=== PATIENT | female | born 1950 | race Caucasian/White ===

== ENCOUNTER 2016-05-19 18:33 | Emergency (ER) | payer MEDICARE, BC ==
[2016-05-19 19:22] VITALS: BP 172/92
--- NOTE | 2016-05-20 17:25 | UC ---
Chucky Velázquez Erika, scribed for Angelina Simon MD on 05/19/16 at 1937 . Lower Extremity/Ankle HPI - HPI Summary HPI Summary: Patient is a 65-year-old female presenting to [facility] with her with a CC of right pedal edema. Patient reports that she has had edema intermittently in her LLE since January 2016. She had an ultrasound of the LLE in the ED in early March 2016, and was diagnosed with cellulitis and put on PO Abx. Pt's RLE has been normal until today, when she developed warmth and redness of the right distal anterior tibia. Pt denies fever and pain to the posterior calf. She does note slight pain to the ankle. She denies chest pain and SOB. Patient has been taking Xarelto 20 mg daily since November 2015 for her Hx A Fib, and is followed by Dr. Garcia (cardiology). She states she has not missed any doses of her Xarelto. Pt has a Hx breast cancer for the past 6 years, and is followed by Dr. Castellanos (oncology) and is currently receiving chemotherapy. Patient reports she has close follow up on 05/21/2016. Pt also takes furosemide. Denies Hx DVT, diabetes. - History of Current Complaint Chief Complaint: UCLowerExtremity Stated Complaint: LEG SWELLING Time Seen by Provider: 05/19/16 19:27 Hx Obtained From: Patient, Family/Center Administrator - Onset/Duration: Gradual Onset, Lasting Hours, Still Present Severity Currently: Moderate Pain Intensity: 2 Pain Scale Used: 0-10 Numeric Aggravating Factor(s): Standing Alleviating Factor(s): Nothing Able to Bear Weight: Yes Related History: Other - has breast cancer on chemo, and is on Xarelto for afib - Allergies/Home Medications Allergies/Adverse Reactions: Allergies Allergy/AdvReac Type Severity Reaction Status Date / Time Hydrochlorothiazide Allergy Intermediate Rash And Verified 05/19/16 19:22 Itching Lisinopril Allergy Intermediate Coughing Verified 05/19/16 19:22 Penicillins Allergy Intermediate Rash And Verified 05/19/16 19:22 Itching Adhesive Tape [Paper Tape] Allergy Mild Rash Verified 05/19/16 19:22 Home Medications: Home Medications Metoprolol Succinate Er* 25 mg PO BID 05/19/16 [History Confirmed 05/19/16] Mushroom Extract* 05/19/16 [History] Zoledronic Acid* [Zometa*] 05/19/16 [History] PMH/Surg Hx/FS Hx/Imm Hx Endocrine History Of: Denies: Diabetes Cardiovascular History Of: Reports: Hypertension, Atrial Fibrillation GI/ History Of: Denies: Renal Disease Cancer History Of: Reports: Breast Cancer - Surgical History Surgical History: Yes Surgery Procedure, Year, and Place: Rt BREAST - MASTECTOMY THEN A SILICONE IMPLANTS. HYSTERECTOMY. CHOLECYSTECTOMY. BLADDER - TRANSURTHRAL RESECTION - Xs 2. CARDIAC CATH - W/O STENTS - Family History Known Family History: Positive: Hypertension, Other - Cancer Negative: Diabetes, Blood Disorder - no DVT or PE's - Social History Lives: With Family Alcohol Use: Weekly Alcohol Amount: 1-2 GLASSES WINE/WEEK Substance Use Type: None Smoking Status (MU): Never Smoked Tobacco Have You Smoked in the Last Year: No Review of Systems Constitutional: Negative Skin: Other - redness and warmth to the RLE Eyes: Negative ENT: Negative Respiratory: Negative Cardiovascular: Negative Gastrointestinal: Negative Genitourinary: Negative Motor: Negative Neurovascular: Negative Musculoskeletal: Edema - bilateral lower extremity Neurological: Negative Psychological: Negative All Other Systems Reviewed And Are Negative: Yes Physical Exam Triage Information Reviewed: Yes Appearance: Well-Appearing, No Pain Distress, Well-Nourished, Other: - Pt is in sinus rhythm by palpation and auscultation Vital Signs: Initial Vital Signs Temp 98.2 F 05/19/16 19:15 Pulse 93 05/19/16 19:15 Resp 16 05/19/16 19:15 BP 172/92 05/19/16 19:15 Pulse Ox 98 05/19/16 19:15 Vital Signs Reviewed: Yes Eyes: Positive: Conjunctiva Clear ENT: Positive: Normal ENT inspection Neck: Positive: Supple Respiratory: Positive: Lungs clear, Normal breath sounds, No respiratory distress Cardiovascular: Positive: RRR, No Murmur, Pulses Normal, Brisk Capillary Refill Musculoskeletal: Positive: Strength Intact, ROM Intact, Other: - No calf tenderness, equivocal Cherise's sign, edema bilat lower extrem left worse than right, redness distal ant tibia (see below) Neurological: Positive: Alert, Muscle Tone Normal Psychological Exam: Normal Skin Exam: Other - 7cm x 14 cm area of erythema and warmth at the left distal anterior tibia. No areas open or weeping Re-Evaluation - Re-Evaluation First Eval Re-Evaluation Time: 19:57 Comment: Discussed Dr. Comer's recommendations and plan for follow up tomorrow Lower Extremity Course/Dx - Differential Dx/Diagnosis Differential Diagnosis/HQI/PQRI: Cellulitis, DVT, Strain, Other - CHF Provider Diagnoses: Cellulitis. bilateral pedal edema. breast cancer undergoing chemotherapy. afib on xarelto - Physician Notifications Discussed Patient Care With: Dr. Comer (oncology) at 19:52 - will have patient come in for an outpatient US tomorrow. Recommends treatment for cellulitis starting today. Discharge - Discharge Plan Condition: Stable Disposition: HOME Prescriptions: Cephalexin CAP* [Keflex 500 CAP*] 500 mg PO QID #40 cap Patient Education Materials: Cellulitis (ED) Referrals: Kenrick Salomon MD [Primary Care Provider] - Pete Comer MD [Medical Doctor] - 1 Day Additional Instructions: Dr. Simon spoke to Dr. Comer who was data communications software consultant [facility]. He wants to get an ultrasound on your right leg tomorrow. Call the office as soon as they open to have them arrange this for you. Go to the Emergency Room if you develop chest pain or shortness of breath or any new or worsening symptoms before you see Dr. Comer's office. The documentation as recorded by the Chucky atwood Erika accurately reflects the service I personally performed and the decisions made by me, Angelina Simon MD.
== END 2016-05-19 20:10 | disposition home or self-care (01) ==
LOC: UCEAST 18:33
DX: L03.116 Cellulitis of left lower limb (principal); L03.115 Cellulitis of right lower limb; R60.9 Edema, unspecified; C50.911 Malignant neoplasm of unspecified site of right female breast
CPT/HCPCS: 99212; G0463

== ENCOUNTER 2016-11-15 12:57 | Emergency (ER) | payer MEDICARE, BC ==
[2016-11-15] MEDS ORDERED: NS 0.9% 1000 ML* 1,000 ML IV ONE ×2 (13:53→15:53)
[2016-11-15] MEDS ORDERED: Acetaminophen TAB* 325 MG PO ONE (13:56)
[2016-11-15 14:21] LABS: Add Diff/Slide Review? Slide Review Added; Comments Flag Yes; Hematocrit 33 % (35-47); Hemoglobin 11.6 g/dl (12.0-16.0); Mean Corpuscular HGB Conc 35 g/dl (31-36); Mean Corpuscular Hemoglobin 39 pg (27-31); Mean Corpuscular Volume 110 fL (80-97); Mean Platelet Volume 9 um3 (7.4-10.4); Red Blood Count 2.97 10^6/ul (4.0-5.4); Red Cell Distribution Width 14 % (10.5-15); White Blood Count 2.9 10^3/ul (3.5-10.8)
[2016-11-15 14:24] LABS: Urine Bacteria Absent (Absent); Urine Bilirubin Negative (Negative); Urine Glucose Negative (Negative); Urine Nitrite Negative (Negative)
[2016-11-15 14:31] LABS: Albumin 3.4 g/dL (3.2-5.2); BUN/Creatinine Ratio 13.8 (8-20); C Reactive Protein 223.92 mg/L (< 5.00); Calcium 8.4 mg/dL (8.6-10.3); EGFR African American 64.2 (>60); EGFR Non-African American 49.9 (>60); Potassium 3.3 mmol/L (3.5-5.0); Total Protein 6.4 g/dL (6.4-8.9)
[2016-11-15 14:33] LABS: Troponin I 0.02 ng/mL (<0.04)
[2016-11-15 14:46] LABS: Macrocytosis 2+
--- NOTE | 2016-11-15 14:59 | RAD ---
Indication: Fever. Single frontal view of the chest performed at 1414 hours was reviewed. No prior study is available for comparison. Left breast prosthesis is noted. No mediastinal shift is noted. Central line is in place. IMPRESSION: INCREASED DENSITY IN THE LEFT BASE IS FELT TO BE SECONDARY TO THE LEFT BREAST PROSTHESIS
[2016-11-15] MEDS ORDERED: Levofloxacin 750 MG IVPREMIX(* 750 MG/150 ML BAG IVPB ONE (16:11)
[2016-11-15] MEDS ORDERED: Potassium Chlor TAB* 20 MEQ TAB.ER PO ONE (17:45)
--- NOTE | 2016-11-15 18:52 | ED ---
Lara Veláqzuez Thomas, scribed for Jd Royal MD on 11/15/16 at 1347 . HPI Febrile Illness - HPI Summary HPI Summary: The pt is a 66 y/o F presenting to the ED c/o a febrile illness that began two days ago. Pt c/o SOB (minor), nausea, diarrhea (soft and without blood), DE PAZ, earache (R>L), vomiting, chills, myalgia (mild), arthralgia (mild), and abd pain (cramping). Pt denies cough and CP. PMHx: A-Fib, anticoagulation therapy, HTN, L breast CA (metastasized to L lung, bladder, endometrial). PSHx: L breast mastectomy, hysterectomy, cholecystectomy, and cardiac catheterization. SHx: weekly alcohol use, no smoking, no illicit drugs. She denies recent sick contacts or antibiotics use. The patient is on oral chemotherapy and Dr. Castellanos is her oncologist. - History of Current Complaint Chief Complaint: EDNauseaVomitDiarrh Time Seen by Provider: 11/15/16 13:39 Hx Obtained From: Patient, Family/Roll Over Loader - in room Onset/Duration: Started Days Ago - 2, Still Present Timing: Constant Current Severity: Mild Aggravating Factors: Nothing Alleviating Factors: Nothing Associated Signs and Symptoms: Chills, Diarrhea - explosive and without blood, Headache, Joint Pain - mild, Myalgia - mild, Nausea, SOB, Vomiting, Other: - POS : abd pain (cramping); NEG: cough, CP - Allergy/Home Medications Allergies/Adverse Reactions: Allergies Allergy/AdvReac Type Severity Reaction Status Date / Time Hydrochlorothiazide Allergy Intermediate Rash And Verified 11/15/16 14:18 Itching Lisinopril Allergy Intermediate Coughing Verified 11/15/16 14:18 Penicillins Allergy Intermediate Rash And Verified 11/15/16 14:18 Itching Adhesive Tape [Paper Tape] Allergy Mild Rash Verified 11/15/16 14:18 Home Medications: Home Medications Ribociclib Succinate-Letrozole [Kisqali Femara 200 Dose 200 & 2.5 mg] 1 kellie PO DAILY 11/15/16 [History Confirmed 11/15/16] PMH/Surg Hx/FS Hx/Imm Hx Previously Healthy: No Endocrine/Hematology History: Denies: Hx Diabetes Cardiovascular History: Reports: Hx Aneurysm - Ascending thoraxic aorta 5 cm, Hx Hypertension Denies: Hx Angina, Hx Pacemaker/ICD Respiratory History: Reports: Other Respiratory Problems/Disorders - Hx Thoracentesis x 2 History: Denies: Hx Renal Disease Musculoskeletal History: Reports: Other Musculoskeletal History - osteroarthritis right shoulder Sensory History: Denies: Hx Hearing Aid Psychiatric History: Denies: Hx Panic Disorder - Cancer History Cancer Type, Location and Year: LEFT Breast CA metastasized to L lung, bladder CA, endometrial CA Hx Chemotherapy: Yes Hx Radiation Therapy: Yes - Surgical History Surgery Procedure, Year, and Place: LEFT BREAST - MASTECTOMY THEN A SILICONE IMPLANTS. HYSTERECTOMY. CHOLECYSTECTOMY. BLADDER - TRANSURTHRAL RESECTION - Xs 2. CARDIAC CATH - W/O STENTS Infectious Disease History: Denies: Traveled Outside the [place] in Last 30 Days - Family History Known Family History: Positive: Hypertension, Other - Cancer Negative: Diabetes - Social History Alcohol Use: Weekly Alcohol Amount: 1-2 GLASSES WINE/WEEK Substance Use Type: Reports: None Smoking Status (MU): Never Smoked Tobacco Have You Smoked in the Last Year: No Review of Systems Positive: Fever - onset 2 days ago, Chills Positive: Ear Ache - R>L Negative: Chest Pain Positive: Shortness Of Breath - minor. Negative: Cough Positive: Abdominal Pain - cramping, Vomiting - explosive and without blood, Diarrhea, Nausea Positive: Arthralgia - mild, Myalgia - mild Positive: Headache All Other Systems Reviewed And Are Negative: Yes Physical Exam - Summary Physical Exam Summary: VITAL SIGNS: Reviewed. GENERAL: ~Patient is a well-developed and nourished female who is lying comfortable in the stretcher. ~Patient is not in any acute respiratory distress. HEAD AND FACE: She has alopecia. No signs of trauma. ~No ecchymosis, hematomas or skull depressions. No sinus tenderness. EYES: PERRLA, EOMI x 2, No injected conjunctiva, no nystagmus. EARS: Hearing grossly intact. Ear canals and tympanic membranes are within normal limits. MOUTH: She has dry oral mucosa. Oropharynx within normal limits. NECK: Supple, trachea is midline, no adenopathy, no JVD, no carotid bruit, no c- spine tenderness, neck with full ROM. CHEST: Symmetric, no tenderness at palpation LUNGS: Clear to auscultation bilaterally. No wheezing or crackles. CVS: Regular rate and rhythm, S1 and S2 present, no murmurs or gallops appreciated. ABDOMEN: There is a Left mastectomy. Soft, non-tender. No signs of distention. No rebound no guarding, and no masses palpated. Bowel sounds are normal. EXTREMITIES: FROM in all major joints, no edema, no cyanosis or clubbing. NEURO: Alert and oriented x 3. No acute neurological deficits. Speech is normal and follows commands. SKIN: Dry and warm Triage Information Reviewed: Yes Vital Signs On Initial Exam: Initial Vitals Temp Pulse Resp BP Pulse Ox 102.4 F 89 20 155/70 99 11/15/16 12:59 11/15/16 12:59 11/15/16 12:59 11/15/16 12:59 11/15/16 12:59 Vital Signs Reviewed: Yes Diagnostics - Vital Signs Vital Signs Temp Pulse Resp BP Pulse Ox 11/15/16 12:59 102.4 F 89 20 155/70 99 - Laboratory Lab Results: Lab Results 11/15/16 11/15/16 11/15/16 Range/Units 13:35 14:05 14:05 WBC 2.9 L (3.5-10.8) 10^3/ul RBC 2.97 L (4.0-5.4) 10^6/ul Hgb 11.6 L (12.0-16.0) g/dl Hct 33 L (35-47) % MCV 110 H (80-97) fL MCH 39 H (27-31) pg MCHC 35 (31-36) g/dl RDW 14 (10.5-15) % Plt Count 95 L (150-450) 10^3/ul MPV 9 (7.4-10.4) um3 Neut % (Auto) 82.1 (38-83) % Lymph % (Auto) 6.8 L (25-47) % [place] % (Auto) 10.7 H (1-9) % Eos % (Auto) 0 (0-6) % Baso % (Auto) 0.4 (0-2) % Absolute Neuts (auto) 2.4 (1.5-7.7) 10^3/ul Absolute Lymphs (auto) 0.2 L (1.0-4.8) 10^3/ul Absolute Monos (auto) 0.3 (0-0.8) 10^3/ul Absolute Eos (auto) 0 (0-0.6) 10^3/ul Absolute Basos (auto) 0 (0-0.2) 10^3/ul Absolute Nucleated RBC 0 10^3/ul Nucleated RBC % 0.1 Normal RBC Morphology Not Reportable Macrocytosis 2+ INR (Anticoag Therapy) 2.32 H (0.89-1.11) APTT 55.9 H (26.0-36.3) seconds Sodium (133-145) mmol/L Potassium (3.5-5.0) mmol/L Chloride (101-111) mmol/L Carbon Dioxide (22-32) mmol/L Anion Gap (2-11) mmol/L BUN (6-24) mg/dL Creatinine (0.51-0.95) mg/dL Est GFR ( Amer) (>60) Est GFR (Non-Af Amer) (>60) BUN/Creatinine Ratio (8-20) Glucose (70-100) mg/dL Lactic Acid (0.5-2.0) mmol/L Calcium (8.6-10.3) mg/dL Total Bilirubin (0.2-1.0) mg/dL AST (13-39) U/L ALT (7-52) U/L Alkaline Phosphatase (34-104) U/L Total Creatine Kinase (10-223) U/L Troponin I (<0.04) ng/mL C-Reactive Protein (< 5.00) mg/L B-Natriuretic Peptide ( - 100) pg/mL Total Protein (6.4-8.9) g/dL Albumin (3.2-5.2) g/dL Globulin (2-4) g/dL Albumin/Globulin Ratio (1-3) Procalcitonin (<0.6) ng/mL Urine Color [place] Urine Appearance Cloudy Urine pH 5.0 (5-9) Ur Specific [place] 1.021 (1.010-1.030) Urine Protein 2+(100 mg/dl) H (Negative) Urine Ketones Trace H (Negative) Urine Blood 1+ H (Negative) Urine Nitrate Negative (Negative) Urine Bilirubin Negative (Negative) Urine Urobilinogen Negative (Negative) Ur Leukocyte Esterase Trace H (Negative) Urine WBC (Auto) 1+(6-10/hpf) H (Absent) Urine RBC (Auto) Trace(0-2/hpf) (Absent) Urine Bacteria Absent (Absent) Urine Glucose Negative (Negative) Urine Ascorbic Acid * H (Negative) 11/15/16 11/15/16 11/15/16 Range/Units 14:05 14:05 14:05 WBC (3.5-10.8) 10^3/ul RBC (4.0-5.4) 10^6/ul Hgb (12.0-16.0) g/dl Hct (35-47) % MCV (80-97) fL MCH (27-31) pg MCHC (31-36) g/dl RDW (10.5-15) % Plt Count (150-450) 10^3/ul MPV (7.4-10.4) um3 Neut % (Auto) (38-83) % Lymph % (Auto) (25-47) % [place] % (Auto) (1-9) % Eos % (Auto) (0-6) % Baso % (Auto) (0-2) % Absolute Neuts (auto) (1.5-7.7) 10^3/ul Absolute Lymphs (auto) (1.0-4.8) 10^3/ul Absolute Monos (auto) (0-0.8) 10^3/ul Absolute Eos (auto) (0-0.6) 10^3/ul Absolute Basos (auto) (0-0.2) 10^3/ul Absolute Nucleated RBC 10^3/ul Nucleated RBC % Normal RBC Morphology Macrocytosis INR (Anticoag Therapy) (0.89-1.11) APTT (26.0-36.3) seconds Sodium 132 L (133-145) mmol/L Potassium 3.3 L (3.5-5.0) mmol/L Chloride 98 L (101-111) mmol/L Carbon Dioxide 25 (22-32) mmol/L Anion Gap 9 (2-11) mmol/L BUN 15 (6-24) mg/dL Creatinine 1.09 H (0.51-0.95) mg/dL Est GFR ( Amer) 64.2 (>60) Est GFR (Non-Af Amer) 49.9 (>60) BUN/Creatinine Ratio 13.8 (8-20) Glucose 126 H (70-100) mg/dL Lactic Acid 0.7 (0.5-2.0) mmol/L Calcium 8.4 L (8.6-10.3) mg/dL Total Bilirubin 1.00 (0.2-1.0) mg/dL AST 23 (13-39) U/L ALT 15 (7-52) U/L Alkaline Phosphatase 62 (34-104) U/L Total Creatine Kinase 70 (10-223) U/L Troponin I 0.02 (<0.04) ng/mL C-Reactive Protein 223.92 H (< 5.00) mg/L B-Natriuretic Peptide 296 H ( - 100) pg/mL Total Protein 6.4 (6.4-8.9) g/dL Albumin 3.4 (3.2-5.2) g/dL Globulin 3.0 (2-4) g/dL Albumin/Globulin Ratio 1.1 (1-3) Procalcitonin (<0.6) ng/mL Urine Color Urine Appearance Urine pH (5-9) Ur Specific [place] (1.010-1.030) Urine Protein (Negative) Urine Ketones (Negative) Urine Blood (Negative) Urine Nitrate (Negative) Urine Bilirubin (Negative) Urine Urobilinogen (Negative) Ur Leukocyte Esterase (Negative) Urine WBC (Auto) (Absent) Urine RBC (Auto) (Absent) Urine Bacteria (Absent) Urine Glucose (Negative) Urine Ascorbic Acid (Negative) 11/15/16 Range/Units 14:05 WBC (3.5-10.8) 10^3/ul RBC (4.0-5.4) 10^6/ul Hgb (12.0-16.0) g/dl Hct (35-47) % MCV (80-97) fL MCH (27-31) pg MCHC (31-36) g/dl RDW (10.5-15) % Plt Count (150-450) 10^3/ul MPV (7.4-10.4) um3 Neut % (Auto) (38-83) % Lymph % (Auto) (25-47) % [place] % (Auto) (1-9) % Eos % (Auto) (0-6) % Baso % (Auto) (0-2) % Absolute Neuts (auto) (1.5-7.7) 10^3/ul Absolute Lymphs (auto) (1.0-4.8) 10^3/ul Absolute Monos (auto) (0-0.8) 10^3/ul Absolute Eos (auto) (0-0.6) 10^3/ul Absolute Basos (auto) (0-0.2) 10^3/ul Absolute Nucleated RBC 10^3/ul Nucleated RBC % Normal RBC Morphology Macrocytosis INR (Anticoag Therapy) (0.89-1.11) APTT (26.0-36.3) seconds Sodium (133-145) mmol/L Potassium (3.5-5.0) mmol/L Chloride (101-111) mmol/L Carbon Dioxide (22-32) mmol/L Anion Gap (2-11) mmol/L BUN (6-24) mg/dL Creatinine (0.51-0.95) mg/dL Est GFR ( Amer) (>60) Est GFR (Non-Af Amer) (>60) BUN/Creatinine Ratio (8-20) Glucose (70-100) mg/dL Lactic Acid (0.5-2.0) mmol/L Calcium (8.6-10.3) mg/dL Total Bilirubin (0.2-1.0) mg/dL AST (13-39) U/L ALT (7-52) U/L Alkaline Phosphatase (34-104) U/L Total Creatine Kinase (10-223) U/L Troponin I (<0.04) ng/mL C-Reactive Protein (< 5.00) mg/L B-Natriuretic Peptide ( - 100) pg/mL Total Protein (6.4-8.9) g/dL Albumin (3.2-5.2) g/dL Globulin (2-4) g/dL Albumin/Globulin Ratio (1-3) Procalcitonin 0.2 (<0.6) ng/mL Urine Color Urine Appearance Urine pH (5-9) Ur Specific [place] (1.010-1.030) Urine Protein (Negative) Urine Ketones (Negative) Urine Blood (Negative) Urine Nitrate (Negative) Urine Bilirubin (Negative) Urine Urobilinogen (Negative) Ur Leukocyte Esterase (Negative) Urine WBC (Auto) (Absent) Urine RBC (Auto) (Absent) Urine Bacteria (Absent) Urine Glucose (Negative) Urine Ascorbic Acid (Negative) Result Diagrams: 11/15/16 14:05 11/15/16 14:05 Lab Statement: Any lab studies that have been ordered have been reviewed, and results considered in the medical decision making process. - Radiology CXR Xray Interpretation: Positive (See Comments) - INCREASED DENSITY IN THE LEFT BASE IS FELT TO BE SECONDARY TO THE LEFT BREAST PROSTHESIS Radiology Interpretation Completed By: Radiologist - EKG 14:21 Cardiac Rate: NL - 87 BPM EKG Interpretation: SR with no ST elevations Re-Evaluation - Re-Evaluation First Eval Re-Evaluation Time: 16:35 Change: Unchanged Comment: We discussed her test results. Course/Dx - Course Assessment/Plan: The pt is a 66 y/o F presenting to the ED c/o a febrile illness that began two days ago. Pt c/o SOB (minor), nausea, diarrhea (soft and without blood), DE PAZ, earache (R>L), vomiting, chills, myalgia (mild), arthralgia (mild), and abd pain (cramping). Pt denies cough and CP. PMHx: A-Fib, anticoagulation therapy, HTN, L breast CA (metastasized to L lung, bladder, endometrial). PSHx: L breast mastectomy, hysterectomy, cholecystectomy, and cardiac catheterization. SHx: weekly alcohol use, no smoking, no illicit drugs. She denies recent sick contacts or antibiotics use. The patient is on oral chemotherapy and Dr. Castellanos is her oncologist. Test results are within normal limits except WBC 2.9, Hcb 11.6, Hct 33, Sodium 132, and Potassium 3.3. CRP is 223 and BNP is 296. UA is negative for UTI. CXR reveals INCREASED DENSITY IN THE LEFT BASE IS FELT TO BE SECONDARY TO THE LEFT BREAST PROSTHESIS. In the ED course the patient was hemodynamically stale. The patient was given Tylenol for the fever. I discussed the case with Dr. Epstein, who is covering for Dr. Castellanos, and he recommended that the patient be started on Levaquin. Dr. Castellanos knows that the patient is taking Kisqali Femara, which has a small interaction with Levaquin, but he recommends that the patient be put on Levaquin. He thinks that the patient may be having a bacterial infection and Levaquin would be best for this. He also recommended that the patient be discharged with follow up from Dr. Castellanos on Thursday. The Patient is hemodynamically stable. She feels better and has no other complaints. I discussed all the findings and test results with the patient. Patient was instructed to return to the emergency room immediately if any of the symptoms return or worsens. Plan of care was discussed with the patient and understands and agrees. All questions were answered at patient satisfaction. There were no further complaints or concerns. - Febrile Illness Differential Diagnoses: Bacteremia, Cellulitis, Fever of Unknown Origin, Pneumonia - Diagnoses Provider Diagnoses: Fever - Provider Notifications Discussed Care Of Patient With: Marvel Epstein Time Discussed With Above Provider: 16:11 Instructed by Provider To: Other - Dr. Epstein, oncology, who is covering for Dr. Castellanos, recommends prescribing Levaquin and discharging the patient home. Discharge - Discharge Plan Condition: Stable Disposition: HOME Prescriptions: Levofloxacin TAB* [Levaquin TAB*] 500 mg PO DAILY #7 tab Patient Education Materials: Fever in Adults (ED) Referrals: Doris Castellanos MD [Medical Doctor] - 2 Days The documentation as recorded by the Lara atwood Thomas accurately reflects the service I personally performed and the decisions made by me, Jd Royal MD.
[2016-11-15 19:01] VITALS: BP 108/61
== END 2016-11-15 19:02 | disposition home or self-care (01) ==
LOC: ED 12:57
DX: R50.9 Fever, unspecified (principal); R06.02 Shortness of breath; R19.7 Diarrhea, unspecified; R51 Headache; R11.2 Nausea with vomiting, unspecified; R10.9 Unspecified abdominal pain; Z88.0 Allergy status to penicillin; Z88.8 Allergy status to other drugs, medicaments and biological substances; I71.4 Abdominal aortic aneurysm, without rupture; I10 Essential (primary) hypertension; R94.31 Abnormal electrocardiogram [ECG] [EKG]
CPT/HCPCS: 36415; 71010; 80053; 81003; 81015; 82550; 83605; 83880; 84145; 84484; 85025; 85610; 85730; 86140; 87040; 87086; 93005; 96361; 96365; 96366; 99283; A9270-GY; J1642

== ENCOUNTER → 2017-05-27 07:11 | Day surgery (SDC) | payer MEDICARE, BC ==
[~2017-05-27 07:11] MED LIST: Acetaminophen TAB* 325 MG PO PRN; Buffered Lidocaine 0.9% SYRIN* 5 ML/SYR SYRINGE INTRADERM ONE; Cyclopentolate 1% OPTH.SOL* 2 ML BTL ONE; Ketorolac 0.5% OPHTH (NF) 0.5 % 5 ML BTL ONE; Lidocaine 1% MPF* 2 ML VIAL ONE; Lidocaine 2% EPI 1:200000 MPF* 20 ML VIAL ONE; Midazolam* 1 MG/ML 2 ML VIAL (2 MG) ONE; Neomycin/Polymy/Dex OPTH.SUSP* MAXITROL 0.1% 5 ML ONE; Phenylephrine 2.5% OPTH.SOL* 2 ML BTL ONE; Povidone Iodine 5% OPTH* 30 ML BTL ONE; Proparacaine 0.5% OPHTH.SOL* 15 ML BTL ONE; acetaZOLAMIDE TAB* 250 MG ONE
[2017-05-27 10:05] VITALS: BP 133/70
--- NOTE | 2017-05-28 02:11 | OP ---
DATE OF OPERATION: 05/27/17 [facility] DATE OF : 46 SURGEON: Jose Fish MD PRE-OP DIAGNOSIS: Cataract, right eye. POST-OP DIAGNOSIS: Cataract, right eye. OPERATIVE PROCEDURE: Extracapsular cataract extraction with intraocular lens implant, right eye. DESCRIPTION OF PROCEDURE: The patient was brought to the operating room after being given 1/2% Alcaine with epinephrine drops in the preoperative area. The eye was prepped and draped in the usual sterile fashion. Sterile drape and eyelid speculum were placed. Again, topical 1/2% Alcaine with epinephrine was given. A paracentesis incision was made at the 9 o'clock position with the No.75 blade. Clear cornea incision 2.2 x 2.2-mm was created at the 12 o'clock position starting at the anterior limbus using the 2.2-mm keratome. The anterior chamber was irrigated with 0.4 mL of 1% non-preservative intracameral lidocaine and filled with DisCoVisc. A capsulorrhexis was completed using the cystotome and the Utrata forceps. Hydrodissection was performed with balanced salt solution. The lens nucleus was removed with the Phacoemulsification handpiece without incident. Cortex was removed with the irrigation-aspiration handpiece. The capsular bag was re-inflated using DisCoVisc and an [id number] 20.5 oriented to the 163-degree meridian. Horizontal reference stephenson were made with the patient in the seated position in the preoperative area. The irrigation-aspiration handpiece was used to remove all residual DisCoVisc. The eye was refilled with balanced salt solution and the wound checked and found to be watertight. Topical Maxitrol drops were given. [id number]/[facility] #: [id number] MTDD
== END | disposition home or self-care (01) ==
LOC: OREAST 07:11
PROVIDERS: ATTEND Specialist
DX: H25.811 Combined forms of age-related cataract, right eye (principal); H35.3131 Nonexudative age-related macular degeneration, bilateral, early dry stage; H49.11 Fourth [trochlear] nerve palsy, right eye; Z85.3 Personal history of malignant neoplasm of breast; Z68.30 Body mass index [BMI] 30.0-30.9, adult; I10 Essential (primary) hypertension; C55 Malignant neoplasm of uterus, part unspecified; C67.9 Malignant neoplasm of bladder, unspecified; C78.7 Secondary malignant neoplasm of liver and intrahepatic bile duct; I48.91 Unspecified atrial fibrillation; Z79.01 Long term (current) use of anticoagulants
CPT/HCPCS: A9270-GY; J2250; V2787

== ENCOUNTER 2017-06-03 06:52 | Day surgery (SDC) | payer MEDICARE, BC ==
[~2017-06-03 06:52] MED LIST changes: -Cyclopentolate 1% OPTH.SOL* 2 ML BTL ONE; -Ketorolac 0.5% OPHTH (NF) 0.5 % 5 ML BTL ONE; -Lidocaine 1% MPF* 2 ML VIAL ONE; -Lidocaine 2% EPI 1:200000 MPF* 20 ML VIAL ONE; -Midazolam* 1 MG/ML 2 ML VIAL (2 MG) ONE; -Neomycin/Polymy/Dex OPTH.SUSP* MAXITROL 0.1% 5 ML ONE; -Phenylephrine 2.5% OPTH.SOL* 2 ML BTL ONE; -Povidone Iodine 5% OPTH* 30 ML BTL ONE; -Proparacaine 0.5% OPHTH.SOL* 15 ML BTL ONE; -acetaZOLAMIDE TAB* 250 MG ONE
[2017-06-03] MEDS ORDERED: acetaZOLAMIDE TAB* 250 MG ONE (07:44)
[2017-06-03] MEDS ORDERED: Cyclopentolate 1% OPTH.SOL* 2 ML BTL ONE (07:44)
[2017-06-03] MEDS ORDERED: Proparacaine 0.5% OPHTH.SOL* 15 ML BTL ONE (07:44)
[2017-06-03] MEDS ORDERED: Ketorolac 0.5% OPHTH (NF) 0.5 % 5 ML BTL ONE (07:44)
[2017-06-03] MEDS ORDERED: Phenylephrine 2.5% OPTH.SOL* 2 ML BTL ONE (07:44)
[2017-06-03] MEDS ORDERED: Lidocaine 1% MPF* 2 ML VIAL ONE (07:44)
[2017-06-03] MEDS ORDERED: Lidocaine 2% EPI 1:200000 MPF* 20 ML VIAL ONE (07:44)
[2017-06-03] MEDS ORDERED: Povidone Iodine 5% OPTH* 30 ML BTL ONE (07:44)
[2017-06-03] MEDS ORDERED: Neomycin/Polymy/Dex OPTH.SUSP* MAXITROL 0.1% 5 ML ONE (07:44)
[2017-06-03] MEDS ORDERED: Midazolam* 1 MG/ML 2 ML VIAL (2 MG) ONE ×2 (08:18→08:28)
[2017-06-03 09:11] VITALS: BP 128/67
--- NOTE | 2017-06-03 10:32 | OP ---
DATE OF OPERATION: 06/03/2017. DATE OF : 1950. SURGEON: Jose Fish M.D. PREOPERATIVE DIAGNOSIS: Cataract left eye. POSTOPERATIVE DIAGNOSIS: Cataract left eye. OPERATIVE PROCEDURE: Extracapsular cataract extraction with intraocular lens implant left eye. PROCEDURE: The patient was brought to the operating room after being given 1/2% Alcaine with epineph rine drops in the preoperative area. The eye was prepped and draped in the usual sterile fashion. S terile drape and eyelid speculum were placed. Again, topical 1/2% Alcaine with epinephrine was given . A paracentesis incision was made at the 3 o'clock position with the No.75 blade. Clear cornea inc ision 2.2 x 2.2-mm was created at the 6 o'clock position starting at the anterior limbus using the 2. 2-mm keratome. The anterior chamber was irrigated with 0.4 mL of 1% non-preservative intracameral li docaine and filled with DisCoVisc. A capsulorrhexis was completed using the cystotome and the Utrata forceps. Hydrodissection was performed with balanced salt solution. The lens nucleus was removed wi th the Phacoemulsification handpiece without incident. Cortex was removed with the irrigation-aspira tion handpiece. The capsular bag was re-inflated using DisCoVisc and an [id number] implant was insert ed with the shooter. The irrigation-aspiration handpiece was used to remove all residual DisCoVisc. The eye was refilled with balanced salt solution and the wound checked and found to be watertight. Topical Maxitrol drops were given. [id number]/[facility] #: [id number]
== END 2017-06-03 09:03 | disposition home or self-care (01) ==
LOC: OREAST 06:52
PROVIDERS: ATTEND Specialist
DX: H25.812 Combined forms of age-related cataract, left eye (principal); H35.3131 Nonexudative age-related macular degeneration, bilateral, early dry stage; H49.11 Fourth [trochlear] nerve palsy, right eye; I48.91 Unspecified atrial fibrillation; Z79.01 Long term (current) use of anticoagulants; I10 Essential (primary) hypertension; Z85.3 Personal history of malignant neoplasm of breast; Z85.51 Personal history of malignant neoplasm of bladder; Z85.118 Personal history of other malignant neoplasm of bronchus and lung
CPT/HCPCS: A9270-GY; J2250; V2632

== ENCOUNTER 2018-04-05 19:07 | Emergency (ER) | payer MEDICARE, BC ==
--- NOTE | 2018-04-05 20:22 | ED ---
HPI Febrile Illness - HPI Summary HPI Summary: Pt is a 67 y/o female who presents to the ED c/o fever. She is a pt of Dr. Adams with breast cancer. Pt has been on chemotherapy, and after two rounds of chemotherapy her neutrophils went down. 2 days ago she began to have cold symptoms. Yesterday she began to have a fever, and today it continued to rise. She called Dr. Epstein who said if her fever lulu about 100.4 degrees F to call back. Pts fever reached 100.8 degrees F and she was advised to come to the ED. She also c/o congestion, sinus pressure, runny nose, and a mild headache. Pt denies any cough or ear aches. She had this seasons flu shot. - History of Current Complaint Chief Complaint: EDFever Time Seen by Provider: 04/05/18 20:15 Hx Obtained From: Patient Onset/Duration: Started Days Ago - 2, Worse Since Timing: Constant Pain Intensity: 0 Pain Scale Used: 0-10 Numeric Aggravating Factors: Nothing Alleviating Factors: Nothing Associated Signs and Symptoms: Headache, Other: - congestion - Allergy/Home Medications Allergies/Adverse Reactions: Allergies Allergy/AdvReac Type Severity Reaction Status Date / Time hydrochlorothiazide Allergy Intermediate Rash And Verified 04/05/18 19:30 Itching Penicillins Allergy Intermediate Rash And Verified 04/05/18 19:30 Itching Adhesive Tape [Paper Tape] Allergy Mild Rash Verified 04/05/18 19:30 lisinopril Allergy Mild Coughing Verified 04/05/18 19:30 Iodine and Iodide Containing Allergy ORAL Verified 04/05/18 19:30 Produc CONTRAST GIVES HER SEVERE DIARRHEA PMH/Surg Hx/FS Hx/Imm Hx Endocrine/Hematology History: Denies: Hx Diabetes Cardiovascular History: Reports: Hx Aneurysm - Ascending thoraxic aorta 5 cm, Hx Hypertension - CONTROLED WITH MEDS, Other Cardiovascular Problems/Disorders - A-FIB AND AORTIC ANEURYSM Denies: Hx Angina, Hx Pacemaker/ICD Respiratory History: Reports: Other Respiratory Problems/Disorders - Hx Thoracentesis x 2 History: Reports: Other Problems/Disorders - BLADDER CANCER HAD SURGERY Denies: Hx Renal Disease Musculoskeletal History: Reports: Hx Arthritis - GENERAL, Other Musculoskeletal History - osteroarthritis right shoulder Sensory History: Reports: Hx Cataracts, Hx Contacts or Glasses - GLASSES Denies: Hx Hearing Aid Opthamlomology History: Reports: Hx Cataracts, Hx Contacts or Glasses - GLASSES Neurological History: Reports: Hx Migraine - AURAS Psychiatric History: Denies: Hx Panic Disorder - Cancer History Cancer Type, Location and Year: breast CA, secondary bone CA, secondary Liver CA Hx Chemotherapy: Yes Hx Radiation Therapy: Yes - Surgical History Surgery Procedure, Year, and Place: LEFT BREAST - MASTECTOMY THEN A SILICONE IMPLANTS. HYSTERECTOMY. CHOLECYSTECTOMY. BLADDER - TRANSURTHRAL RESECTION - Xs 2. CARDIAC CATH - W/O STENTS. LUNG/LIVER/RIGHT SCAPULA BIOPSIES. TONSILECTOMY Hx Anesthesia Reactions: No Infectious Disease History: No Infectious Disease History: Denies: Traveled Outside the [place] in Last 30 Days - Family History Known Family History: Positive: Hypertension, Other - Cancer Negative: Diabetes - Social History Alcohol Use: None Alcohol Amount: 1-2 GLASSES WINE/WEEK Hx Substance Use: No Substance Use Type: Reports: None Hx Tobacco Use: No Smoking Status (MU): Never Smoked Tobacco Have You Smoked in the Last Year: No Review of Systems Positive: Fever Positive: Nasal Discharge, Other - Sinus pressure, sinus congestion. Negative: Ear Ache Negative: Cough Positive: Headache All Other Systems Reviewed And Are Negative: Yes Physical Exam - Summary Physical Exam Summary: Appearance: chronically-ill appearing, no pain distress Skin: warm, dry, reflects adequate perfusion, port in right chest Head/face: normal Eyes: EOMI, ARELI ENT: mucous membranes moist, clear mucus in posterior pharynx, fair amount of yellow-white nasal discharge, maxillary sinus discomfort bilaterally Neck: supple, non-tender Respiratory: CTA, breath sounds present Cardiovascular: RRR, pulses symmetrical and strong Abdomen: non-tender, soft Bowel Sounds: present Musculoskeletal: normal, strength/ROM intact Neuro: normal, sensory motor intact, A&Ox3 Triage Information Reviewed: Yes Vital Signs On Initial Exam: Initial Vitals Temp Pulse Resp BP Pulse Ox 98.6 F 75 16 158/74 98 04/05/18 19:27 04/05/18 19:27 04/05/18 19:27 04/05/18 19:27 04/05/18 19:27 Vital Signs Reviewed: Yes Diagnostics - Vital Signs Vital Signs Temp Pulse Resp BP Pulse Ox 04/05/18 19:27 98.6 F 75 16 158/74 98 - Laboratory Result Diagrams: 04/05/18 20:08 04/05/18 20:08 Lab Statement: Any lab studies that have been ordered have been reviewed, and results considered in the medical decision making process. - Radiology CXR Radiology Interpretation Completed By: ED Physician Summary of Radiographic Findings: Increased markings in left base, unchanged from previous. Pending official radiology report. Re-Evaluation - Re-Evaluation First Eval Re-Evaluation Time: 21:40 Change: Unchanged Comment: Discussed discharge plan and conversation with Dr. Epstein. Course/Dx - Course Course Of Treatment: Nurse's notes reviewed. Patient with a history of breast cancer on chemotherapy with recent neutropenia. IV separately and was given as she has been febrile. No febrile source found. She has nasal congestion and sinus discomfort which is presumed source. Likely viral. We will cover with oral Levaquin. Discussed case with her oncologist team. Patient is not neutropenic today. They agree with outpatient Levaquin. - Febrile Illness Differential Diagnoses: Other: - Neutropenic fever, pneumonia, UTI, sinusitis, influenza, URI - Diagnoses Provider Diagnoses: Acute sinusitis, History of breast cancer - Provider Notifications Discussed Care Of Patient With: Marvel Epstein Time Discussed With Above Provider: 21:22 Instructed by Provider To: Other - Dr. Epstein agrees with the plan. Discharge - Sign-Out/Discharge Documenting (check all that apply): Patient Departure - Discharge - Discharge Plan Condition: Improved Disposition: HOME Prescriptions: Guaifenesin/Pseudoephedrne HCl [Mucinex D ER 600-60 mg Tablet] 1 each PO BID PRN #12 tab.er.12h PRN Reason: Congestion Levofloxacin TAB* [Levaquin TAB*] 750 mg PO DAILY #7 tab Patient Education Materials: Sinusitis (ED) Referrals: Kenrick Salomon MD [Primary Care Provider] - Additional Instructions: Drink plenty of fluids. Tylenol as needed for any fevers. Follow-up with Dr. Castellanos on April 07. Return with high fever, increased discomfort, difficulty breathing, worse, new symptoms or other concerns. - Billing Disposition and Condition Condition: IMPROVED Disposition: Home - Attestation Statements Document Initiated by Scribe: Yes Documenting Scribe: Carley Nunez Provider For Whom Scribe is Documenting (Include Credential): Elan Jimenez MD Scribe Attestation: Carley Velázquez, scribed for Elan Jimenez MD on 04/05/18 at [id number]. Scribe Documentation Reviewed: Yes Provider Attestation: The documentation as recorded by the scribe, Carley Nunez accurately reflects the service I personally performed and the decisions made by me, Elan Jimenez MD Status of Scribe Document: Viewed
[2018-04-05 20:25] LABS: ABS Basophils 0 10^3/ul (0-0.2); ABS Eosinophils 0 10^3/ul (0-0.6); ABS Lymphocytes 0.5 10^3/ul (1.0-4.8); ABS Monocytes 0.6 10^3/ul (0-0.8); ABS Neutrophils 1.9 10^3/ul (1.5-7.7); ABS Nucleated RBC 0 10^3/ul; Eosinophil % 0.2 %; Hematocrit 40 % (35-47); Hemoglobin 13.6 g/dl (12.0-16.0); Lymphocyte % 15.8 %; Mean Corpuscular HGB Conc 34 g/dl (31-36); Mean Corpuscular Hemoglobin 35 pg (27-31); Mean Corpuscular Volume 102 fL (80-97); Mean Platelet Volume 7.6 fL (7.4-10.4); Nucleated Red Blood Cells % 0.2; Platelet Count 217 10^3/ul (150-450); Red Blood Count 3.88 10^6/ul (4.00-5.40); Red Cell Distribution Width 16 % (10.5-15)
[2018-04-05 20:36] LABS: Activated Partial Thrombo Time 33.9 seconds (26.0-36.3); INR 1.44 (0.77-1.02)
[2018-04-05] MEDS ORDERED: NS 0.9% 1000 ML* 1,000 ML IV ONE (20:40)
[2018-04-05 20:42] LABS: Albumin 3.7 g/dL (3.2-5.2); Albumin/Globulin Ratio 1.4 (1-3); BUN/Creatinine Ratio 15.7 (8-20); C Reactive Protein 46.69 mg/L (<8.01); Calcium 9.1 mg/dL (8.6-10.3); EGFR Non-African American 53.7 (>60); Globulin 2.7 g/dL (2-4); Potassium 3.9 mmol/L (3.5-5.0); Total Bilirubin 1.1 mg/dL (0.2-1.0); Total Protein 6.4 g/dL (6.4-8.9)
[2018-04-05] MEDS ORDERED: Cefepime(*) 1 GM in NS 0.9% 50 ML* 50 ML IVPB ONE (21:18)
[2018-04-05 22:54] VITALS: BP 134/76
== END 2018-04-05 22:56 | disposition home or self-care (01) ==
LOC: ED 19:07
DX: J01.90 Acute sinusitis, unspecified (principal); I48.91 Unspecified atrial fibrillation; I10 Essential (primary) hypertension; Z85.3 Personal history of malignant neoplasm of breast; Z85.830 Personal history of malignant neoplasm of bone; Z85.05 Personal history of malignant neoplasm of liver; Z88.0 Allergy status to penicillin; Z88.8 Allergy status to other drugs, medicaments and biological substances; Z91.048 Other nonmedicinal substance allergy status
CPT/HCPCS: 36415; 71045; 80053; 83605; 84484; 85025; 85610; 85730; 86140; 87040; 96365; 99283; J0692

== ENCOUNTER 2018-05-17 14:11 | Inpatient (IN) | payer MEDICARE, BC ==
[2018-05-17] MEDS ORDERED: Vancomycin(*) 1,000 MG in NS 0.9% 250 ML* 250 ML IVPB ONE (14:26)
[2018-05-17] MEDS ORDERED: Vancomycin(*) 1,000 MG in NS 0.9% 250 ML* 250 ML IVPB SCH (15:00)
[2018-05-17] MEDS ORDERED: Scopolamine 1.5 mg* PATCH TRANSDERM PRN (15:33)
[2018-05-17] MEDS ORDERED: Docusate CAP* 100 MG PO PRN (15:33)
[2018-05-17] MEDS ORDERED: Prochlorperazine TAB* 10 MG PO PRN (15:33)
[2018-05-17] MEDS ORDERED: hydrOXYzine HCL TAB* 25 MG PO PRN (15:33)
--- OUTSIDE RECORDS SUMMARY | 2018-05-17 16:55 | XMS REPORT | Continuity of Care Document ---
:1950 External Reference #:[id number] Author Name Hiral Carlos Care Team Providers Name Role Phone Kenrick Salomon MD Primary Care Physician Unavailable Payers Type Date Identification Numbers Payment Provider Subscriber Policy Number: [id number] Medicare Momo [place] PayID: [id number] [address] [place] [address] Policy Number: [id number] [facility] ANI Chun [place] Group Number: [id number] [address] [address] Group Name: [facility] PEPE Ocampo [address] PayID: [id number] Advance Directives Description No Information Available Problems Description No Information Family History Date Family Member(s) Problem(s) Comments Father due to Neurological () - at age 86 disorder Father Coronary Artery Disease (CAD) Mother due to Infection () - at age 89 Mother Hypertension Siblings 4 No known CAD Social History Type Date Description Comments Sex Unknown Marital Status Lives With Occupation Retired Tobacco Use Start: Unknown Never Smoked Cigarettes Smoking Status Reviewed: 05/04/18 Never Smoked Cigarettes ETOH Use Occasionally consumes alcohol Tobacco Use Start: Unknown Patient has never smoked Recreational Drug Use Current Drug User Medical Marijuana (powder mixed w/ tea) regularly Exercise Type/Frequency Exercises regularly 30 mins a day w/ video, 10 mins walking or excersize bike Allergies, Adverse Reactions, Alerts Date Description Reaction Status Severity Comments 08/21/2015 Hydrochlorothiazide Active 08/21/2015 Paper Tape Active 08/21/2015 PCN Active 08/21/2015 Lisinopril Active cough 07/23/2017 Contrast Dye diarrhea Active administer oral Medications Medication Date Status Form Strength Qnty SIG Indications Ordering Provider Diltiazem HCL 04/13 Active Tablets 30mg 60tab take 1 tab Nyasia S. /2018 s 2x daily. Carlos, N.P. Medical Marijuana 03/23 Active with CBD, powder form, 5 mg=/ tsp mixed with hot tea twice daily by mouth prn Valsartan 01/11 Active Tablets 80mg 30tab 1 by mouth Qutaybeh s every day Hannah Garcia M.D. Metoprolol 07/23 Active Tablets 50mg 225ta 1 tab by I48.0 Nyasia S. Tartrate bs mouth Foster, twice N.P. daily. Torsemide 08/25 Active Tablets 10mg 90tab 1 tab by I48.0 Qutaybeh /2016 s mouth S. daily Germain Garcia Potassium 04/25 Active Tablets ER 10Meq 90tab 1 tab by I48.0 Qutaybeh Chloride Marianne ER /2016 s mouth S. every day Germain Garcia Compression 04/25 Active Misc 2pair knee high Qutaybeh Stockings s closed toe S. light Radha martinez M.D. n- please measure for size Xarelto 11/28 Active Tablets 20mg 90tab 1 by mouth I48.0 Qutaybeh /2015 s every day Hannah Garcia M.D. Miracle Mouth 08/20 Active 2tsp Qutaybeh Wash liquid S. mouth/thro Radha at four , M.D. 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 - day [facility] 01/10 , M.Francisco Diovan 10/27 Hx Tablets 80mg 90tab 1 tab by I10 Nyasia S. s mouth Carlos, - daily N.P. 01/11 Dexamethasone 08/25 Hx Soln 8mg/2ML take 4mg Nyasia S. Sodium Phosphate Prefill two Carlos, - Syringe fridays N.P. 01/10 one thursday off Torsemide 04/25 Hx Tablets 5mg 90tab 1 tab by I48.0 Qutaybeh s mouth S. - every day [facility] 08/25 with , M.DAnirudh additional prn tablet as needed Metoprolol 03/28 Hx Tablets ER 25mg 180ta 1 by mouth I48.0 Qutaybeh Succinate ER /2015 24HR bs am and 2 S. - pm [facility] 08/24 , Germain Cardizem CD 11/18 Hx Caps ER 120mg 90cap 1 by mouth Qutaybeh 24HR s every day S. - [facility] 03/28 , Germain Prochlorperazine 08/20 Hx Tablets 10mg one tab Qutaybeh Maleate every hrs S. - as needed [facility] 08/19 , MAlba Acetaminophen Hx Capsules 500mg 1 by mouth Unknown /0000 four times - a day as 04/12 Amlodipine Hx Tablets 5mg 1 by mouth Unknown Besylate /0000 every day - 11/18 Calcium 600 + D Hx Tablets 600-800mg 1 by mouth Unknown /0000 -Units once a day - 11/17 Diovan Hx Tablets 160mg 1/2 tab by Unknown /0000 mouth - every day 10/[address] 5mg 2 by mouth Unknown /0000 prn - 08/24 Vitamin B-12 00 Hx Capsules 1000Unit 1 by mouth Unknown /0000 every day - 03/11 Zyrtec Allergy /00 Hx Capsules 10mg 1 by mouth Unknown /0000 every day - 11/17 Maitake Mushroom /00 Hx Powder 2 powder Unknown /0000 daily - 10/28 Xgeva /00 Hx Injection Unknown /0000 once a - month 11/17 Vitamin B50 /00 Hx Tablets ER 1 tablet Unknown Complex /0000 po daily - 03/27 L-Glutamine Hx Capsules 500mg 3 capsule Unknown /0000 po daily ( - On hold 08/24 patient) Abraxane Hx Infusion 195mg 1 time for Unknown /0000 3 weeks - then 1 08/24 week off restart cycle Zofran Hx Tablets 4mg 1 tab by Unknown /0000 mouth - every 6 07 hours needed nausea Aspirin Ec Hx Tablets DR 325mg 1 by mouth Unknown /0000 daily - 11/28 Furosemide Hx Tablets 20mg 30tab (pt is Qutaybeh /0000 s currently S. - not Maghaydah 04/25 taking) 1 , M.D. tablet 4x per week (m, w, f, sun) and 1/2 tablet 3x per week (t, th, sat) Imodium A-D Hx Capsules 2mg prn ( Unknown /0000 rarely - taken) 04/12 B Complex Hx Tablets 100mg 1 by mouth Unknown /0000 every day - 03/11 Cephalexin Hx Tablets 500mg take one Unknown /0000 tablet - every 6 08/24 hours 10 days Femara 00 Hx Tablets 2.5mg 1 tablet Unknown /0000 by mouth - daily 03/11 Kisqali 600 Dose 00 Hx Tablets 200mg 1 tablet Unknown /0000 by mouth - for 21 03/11 days, days off then restart cycle Doxorubicin HCL 00/00 Hx Infusion at Unknown Liposomal /0000 oncology - suite q [place] /00 Hx Solution 1mg/2ML 2.7MG by Unknown /0000 infusion - for 21 day 01/10 Navelbine 00/00 Hx Solution 50mg/5ML 2 times Unknown /0000 weekly , - then 1 05/03 week off Dexamethasone Hx Concentrate 1mg/ml 4 ml Unknown Intensol /0000 before - chemo 05/03 Medications Administered in Office Medication Date Status Form Strength Qnty SIG Indications Ordering Provider Technetium TC Administered Injection Etienne Lopez [id number] [place] Luque M.D., FAC, Per Unit Dose FASNC Up To 40 Millicuries Immunizations Description No Information Available Vital Signs Date Vital Result Comment 05/04/2018 8:27am Height 66 inches 5'6" Weight 185.50 lb no shoes Heart Rate 72 /min BP Systolic Sitting 122 mmHg lue reg cuff BP Diastolic Sitting 78 mmHg lue reg cuff BP Systolic Standing 110 mmHg lue reg cuff BP Diastolic Standing 78 mmHg lue reg cuff Respiratory Rate 14 /min BMI (Body Mass Index) 29.9 kg/m2 04/13/2018 9:30am Height 66 inches 5'6" Weight 187.00 lb Heart Rate 62 /min BP Systolic Sitting 125 mmHg Rue BP Diastolic Sitting 85 mmHg Rue BP Systolic Standing 123 mmHg Rue reg cuf BP Diastolic Standing 80 mmHg Rue reg cuf BMI (Body Mass Index) 30.2 kg/m2 01/11/2018 11:34am Height 66 inches 5'6" Weight 187.25 lb Heart Rate 56 /min BP Systolic Sitting 120 mmHg right arm lg cuff sitting BP Diastolic Sitting 72 mmHg right arm lg cuff sitting BP Systolic Standing 116 mmHg right arm lg cuff standing BP Diastolic Standing 68 mmHg right arm lg cuff standing BMI (Body Mass Index) 30.2 kg/m2 Ejection Fraction 50-55% echo 05/22/17 11/17/2017 2:37pm Height 66 inches 5'6" Weight 184.75 lb W/O Shoes Heart Rate 78 /min BP Systolic Sitting 138 mmHg Rue Reg Cuff BP Diastolic Sitting 82 mmHg Rue Reg Cuff BMI (Body Mass Index) 29.8 kg/m2 Ejection Fraction 61% Nuc Stress Test 07/14/17 10/27/2017 10:25am Height 66 inches 5'6" Weight 182.00 lb with shoes Heart Rate 56 /min BP Systolic Sitting 104 mmHg Rue reg cuff BP Diastolic Sitting 60 mmHg Rue reg cuff BP Systolic Standing 110 mmHg Rue reg cuff BP Diastolic Standing 68 mmHg Rue reg cuff Respiratory Rate 16 /min BMI (Body Mass Index) 29.4 kg/m2 Ejection Fraction 55-60% date 04/30/17 ECHO 08/25/2017 10:08am Height 66 inches 5'6" Weight 190.00 lb Heart Rate 62 /min BP Systolic Sitting 112 mmHg rue lg cuff BP Diastolic Sitting 64 mmHg rue lg cuff BP Systolic Standing 110 mmHg rue lg cuff BP Diastolic Standing 64 mmHg rue lg cuff Respiratory Rate 16 /min BMI (Body Mass Index) 30.7 kg/m2 Ejection Fraction 55-60% 04/30 echo 07/23/2017 2:02pm Height 66 inches 5'6" Weight 194.00 lb with Heart Rate 64 /min BP Systolic Sitting 130 mmHg BP Diastolic Sitting 74 mmHg BP Systolic Standing 120 mmHg BP Diastolic Standing 88 mmHg BMI (Body Mass Index) 31.3 kg/m2 06/04/2017 3:22pm Height 66 inches 5'6" Weight 189.00 lb w/shoes Heart Rate 66 /min BP Systolic Sitting 136 mmHg Ra lg cuff BP Diastolic Sitting 76 mmHg Ra lg cuff BMI (Body Mass Index) 30.5 kg/m2 Ejection Fraction 55-60% Echo 04/30/17 05/12/2017 10:33am Height 66 inches 5'6" Weight 189.00 lb No shoes Heart Rate 82 /min BP Systolic Sitting 124 mmHg Rue lrg cuff BP Diastolic Sitting 74 mmHg Rue lrg cuff BP Systolic Standing 120 mmHg Rue lrg cuff BP Diastolic Standing 72 mmHg Rue lrg cuff Respiratory Rate 16 /min BMI (Body Mass Index) 30.5 kg/m2 Ejection Fraction 55-60% 04/30/2017-echo 03/12/2017 10:40am Height 66 inches 5'6" Weight 188.12 lb with shoes Heart Rate 60 /min BP Systolic Sitting 120 mmHg Ra, lcuff BP Diastolic Sitting 68 mmHg Ra, lcuff BMI (Body Mass Index) 30.4 kg/m2 Ejection Fraction 55%-60% echo 03/17/16 10/21/2016 2:05pm Height 66 inches 5'6" Weight 186.25 lb w/o shoes Heart Rate 72 /min BP Systolic Sitting 124 mmHg Ra lrg cuff BP Diastolic Sitting 68 mmHg Ra lrg cuff BMI (Body Mass Index) 30.1 kg/m2 Ejection Fraction 55% - 60% echo 03/17/16 08/25/2016 8:11am Height 66 inches 5'6" Weight 185.75 lb w/o shoes Heart Rate 64 /min BP Systolic Sitting 134 mmHg Ra lrg cuff BP Diastolic Sitting 72 mmHg Ra lrg cuff BMI (Body Mass Index) 30.0 kg/m2 Ejection Fraction 55% - 60% echo 03/17/16 05/27/2016 1:01pm Height 66 inches 5'6" Weight 188.00 lb w/o shoes Heart Rate 62 /min BP Systolic 130 mmHg Ra home cuff BP Diastolic 77 mmHg Ra home cuff BP Systolic Sitting 126 mmHg Ra home cuff BP Diastolic Sitting 70 mmHg Ra home cuff BMI (Body Mass Index) 30.3 kg/m2 Ejection Fraction 55% - 60% echo 03/17/16 04/25/2016 9:14am Height 66 inches 5'6" Weight 189.00 lb with shoes Heart Rate 56 /min BP Systolic Sitting 148 mmHg Lue lrg cuff BP Diastolic Sitting 80 mmHg Lue lrg cuff BP Systolic Standing 132 mmHg Lue lrg cuff BP Diastolic Standing 78 mmHg Lue lrg cuff Respiratory Rate 17 /min BMI (Body Mass Index) 30.5 kg/m2 Ejection Fraction 55% - 60% echo 03/17/16 03/28/2016 9:25am Height 66 inches 5'6" Weight 186.00 lb with shoes Heart Rate 62 /min BP Systolic Sitting 148 mmHg Rue lg cuff BP Diastolic Sitting 70 mmHg Rue lg cuff BP Systolic Standing 132 mmHg Rue lg cuff BP Diastolic Standing 70 mmHg Rue lg cuff Respiratory Rate 17 /min BMI (Body Mass Index) 30.0 kg/m2 Ejection Fraction 55-60% date 03/11/16 ECHO 03/11/2016 2:51pm Height 66 inches 5'6" Weight 187.50 lb Heart Rate 64 /min BP Systolic Sitting 138 mmHg Ra large cuff BP Diastolic Sitting 82 mmHg Ra large cuff BP Systolic Standing 136 mmHg Ra BP Diastolic Standing 80 mmHg Ra BMI (Body Mass Index) 30.3 kg/m2 Ejection Fraction 55-60% 08/08/15 11/29/2015 9:13am Height 66 inches 5'6" Weight 186.00 lb w/o shoes Heart Rate 70 /min BP Systolic Sitting 116 mmHg Rue, lg cuff BP Diastolic Sitting 66 mmHg Rue, lg cuff BP Systolic Standing 114 mmHg Rue BP Diastolic Standing 64 mmHg Rue Respiratory Rate 16 /min BMI (Body Mass Index) 30.0 kg/m2 Ejection Fraction 55-60% as of 08/08/15 echo 11/19/2015 8:17am Height 66 inches 5'6" Weight 182.00 lb w/o shoes Heart Rate 80 /min BP Systolic Sitting 118 mmHg Ra lg cuff BP Diastolic Sitting 60 mmHg Ra lg cuff BMI (Body Mass Index) 29.4 kg/m2 Ejection Fraction 55-60% Echo 08/08/15 08/21/2015 8:56am Height 66 inches 5'6" Weight 189.50 lb w/o shoes Heart Rate 74 /min BP Systolic Sitting 180 mmHg Ra lg cuff BP Diastolic Sitting 90 mmHg Ra lg cuff BMI (Body Mass Index) 30.6 kg/m2 Ejection Fraction 55-60% Echo 08/08/15 Results Test Date Facility Test Result H/L Range Note Laboratory test 05/18/2017 [facility] TSH 0.72 mcIU/mL N 0.34- 5.[address] ([place] [address] Stim Horm) [phone] Free T4 (Free Thyroxine) 0.94 ng/dL N 0.61-1.12 2 T3 Free 2.60 pg/mL N 2.5-3.9 3 Laboratory test 02/16/2017 [facility] Cytology SEE RESULT [address] Non-Facility Environmental Technician [place], [place] [id number] [phone] Laboratory test 02/16/2017 [facility] Cytology SEE RESULT [address] Non-Facility Environmental Technician [place], [place] [address] [phone] Laboratory test 02/16/2017 [facility] Cytology SEE RESULT [address] Non-Facility [place] [address] [phone] Basic Metabolic 05/06/2016 [facility] Sodium 136 mmol/L N 133- [address] [place] [address] [phone] Potassium 4.3 mmol/L N 3.5-5.0 Chloride 104 mmol/L N 101-111 Co2 Carbon Dioxide 29 mmol/L N 22-32 Anion Gap 3 mmol/L N 2-11 Glucose 94 mg/dL N 70-100 Blood Urea Nitrogen 16 mg/dL N 6-24 Creatinine 0.84 mg/dL N 0.51-0.95 BUN/Creatinine Ratio 19.0 N 8-20 Calcium 9.4 mg/dL N 8.6-10.3 Egfr Non- 67.6 N >60 Egfr 87.0 N >60 7 Laboratory test 03/28/2014 [facility] Cytology SEE RESULT [address] Non-Facility [place] [address] [phone] 1 Pt can have drawn with next routine lab draw 2 Pt can have drawn with next routine lab draw 3 Pt can have drawn with next routine lab draw 4 SEE RESULT BELOW Name: MOMO KEARNEY : [address]: Doris Castellanos MD Acct: [id number] Unit: [id number] AGE: 66 Location: Re02/16/17 SEX: F Status: REG REF SPEC: [id number] AISHWARYA: 02/16/17-[address] [facility] DR: Doris Castellanos MD REQ: [id number] RECD: 02/16/17 STATUS: CHERI HOFF DR: Mac Austin MD _ ORDERED: FNA-IMG GUID BX, CY ADEQ-ADDL P/4, LEVEL 4/2, CYTO ADEQ-1ST P, IMMUNO-FI IMMUNO-ADDL/7 Passes 1-4 were inadequate. Pass 5 was adequate. Addendum Signed (signature on file) Debbie Freitas MD 03/22 1506 Addendum: Additional immunohistochemical stains are performed on a second cell block. ER few scattered ER positive nuclei presence with variable staining in hepatocytes. HSA strong positive in hepatocytes with few HCC negative cells in background of unknown significance HER-2 few scattered cells demonstrating weak to moderate cytoplasmic and membrane staining. These findings continued demonstrate a few scattered detached cells with moderate to intense ER positivity and few cells demonstrating weak HER-2 expression. While somewhat worrisome in this clinical context these are insufficient for a definitive diagnosis despite examination of ample tissue including abundant reactive liver tissue. Addendum Signed (signature on file) Tesfaye Zacarias MD 1527 FINAL DIAGNOSIS Liver, CT guided fine needle aspiration: --Atypical? scattered atypical groups suspicious for metastatic carcinoma of breast origin. See comment. Comment: The majority of the sampled tissue consists of benign and reactive hepatocellular elements including small CONTINUED ON NEXT PAGE * ML=Testing performed at Main Lab DEPARTMENT OF PATHOLOGY, [address] [place] [address] Tesfaye Zacarias M.D. Director [facility] # [id number] RUN DATE: 03/17/17 [facility] LAB LIVE PAGE 2 Patient: MOMO KEARNEY [id number] (Continued) SPECIMEN COMMENTS (Continued) bile ducts fragments. A few atypical epithelial groups are noted within the aspirate smear material as well as the formalin fixed cell block demonstrating increase N: C ratio with dense eosinophilic cytoplasm and mild to moderately pleomorphic hyperchromatic nuclei with irregular nuclear contours. A few groups are isolated from the liver parenchyma and a few are insinuated within reactive liver. The following immunohistochemical stains are performed with appropriate controls on formalin fixed cell block material. ER positive, 2?3 plus in atypical population, 1+ background in hepatocellular component, negative and bile ducts DE negative CK7 positive in epithelial and bile duct elements CK5/6 noncontributory P63 negative The patient's prior scapular biopsy (CN14?1219) was reviewed. The malignant groups in that specimen are morphologically similar to the atypical groups seen in the current material though the bone lesion cells demonstrated a few definitive glandular structures and a few scattered intracytoplasmic mucin vacuoles not seen here. Additionally the ER expression in the bone lesion is somewhat less intense than that seen in the current atypical groups in the liver biopsy. The findings in this case are admittedly subtle and the atypical groups are quite scant in an otherwise very ample specimen. Though the atypical cell population is morphologically similar to the metastatic carcinoma noted in this patient's prior scapular metastasis, a reactive/regenerative hepatocellular focus cannot be entirely excluded (can also be ER positive). A diagnosis of malignancy cannot be made with certainty in this case based on the current studies. Additional studies to further refine this interpretation on additional cell block material are pending and will be reported in an addendum. Dr. Freitas has reviewed this case and concurs. CONTINUED ON NEXT PAGE * ML=Testing performed at Main Lab DEPARTMENT OF PATHOLOGY, [address] [place] [address] Tesfaye Zacarias M.D. Director [facility] # [id number] RUN DATE: 03/17/17 [facility] LAB LIVE PAGE 3 Patient: MOMO KEARNEY [id number] (Continued) SPECIMEN COMMENTS (Continued) A cell block was prepared in the evaluation of this specimen. Smears and cell block reveal similar findings. 1. LIVER - CT GUIDED LIVER FINE NEEDLE ASPIRATION CLINICAL HISTORY Bladder cancer (2006), breast cancer (2010), possible metastasis. PRE-OPERATIVE DIAGNOSIS L GROSS DESCRIPTION CT Guided, fine needle aspiration x 5 passes with 7 Alcohol fixed slide(s) and 2 needle rinse in formalin for cell blocks labeled [id number] and [id number]. Signed (signature on file) Tesfaye Zacarias MD 1149 END OF REPORT * ML=Testing performed at Main Lab DEPARTMENT OF PATHOLOGY, [address] [place] [address] Tesfaye Zacarias M.D. Director [facility] # [id number] 5 SEE RESULT BELOW Name: MOMO KEARNEY : [address]: Doris Castellanos MD Acct: [id number] Unit: [id number] AGE: 66 Location: Re02/16/17 SEX: F Status: REG REF SPEC: [id number] AISHWARYA: 02/16/17-[address] [facility] DR: Doris Castellanos MD REQ: [id number] RECD: 02/16/17 STATUS: CHERI HOFF DR: Mac Austin MD _ ORDERED: FNA-IMG GUID BX, CY ADEQ-ADDL P/4, LEVEL 4/2, CYTO ADEQ-1ST P, IMMUNO-FI IMMUNO-ADDL/7 Addendum: Additional immunohistochemical stains are performed on a second cell block. ER few scattered ER positive nuclei presence with variable staining in hepatocytes. HSA strong positive in hepatocytes with few HCC negative cells in background of unknown significance HER-2 few scattered cells demonstrating weak to moderate cytoplasmic and membrane staining. These findings continued demonstrate a few scattered detached cells with moderate to intense ER positivity and few cells demonstrating weak HER-2 expression. While somewhat worrisome in this clinical context these are insufficient for a definitive diagnosis despite examination of ample tissue including abundant reactive liver tissue. Addendum Signed (signature on file) Tesfaye Zacarias MD 1527 FINAL DIAGNOSIS Liver, CT guided fine needle aspiration: --Atypical? scattered atypical groups suspicious for metastatic carcinoma of breast origin. See comment. Comment: The majority of the sampled tissue consists of benign and reactive hepatocellular elements including small bile ducts fragments. A few atypical epithelial groups are noted within the aspirate smear material as well as the formalin fixed cell block demonstrating increase N: C ratio with dense eosinophilic cytoplasm and mild to moderately pleomorphic hyperchromatic nuclei with irregular nuclear CONTINUED ON NEXT PAGE * ML=Testing performed at Main Lab DEPARTMENT OF PATHOLOGY, [address] [place] [address] Tesfaye Zacarias M.D. Director [facility] # [id number] RUN DATE: 02/24/17 [facility] LAB LIVE PAGE 2 Patient: MOMO KEARNEY [id number] (Continued) SPECIMEN COMMENTS (Continued) contours. A few groups are isolated from the liver parenchyma and a few are insinuated within reactive liver. The following immunohistochemical stains are performed with appropriate controls on formalin fixed cell block material. ER positive, 2?3 plus in atypical population, 1+ background in hepatocellular component, negative and bile ducts DE negative CK7 positive in epithelial and bile duct elements CK5/6 noncontributory P63 negative The patient's prior scapular biopsy ([id number]) was reviewed. The malignant groups in that specimen are morphologically similar to the atypical groups seen in the current material though the bone lesion cells demonstrated a few definitive glandular structures and a few scattered intracytoplasmic mucin vacuoles not seen here. Additionally the ER expression in the bone lesion is somewhat less intense than that seen in the current atypical groups in the liver biopsy. The findings in this case are admittedly subtle and the atypical groups are quite scant in an otherwise very ample specimen. Though the atypical cell population is morphologically similar to the metastatic carcinoma noted in this patient's prior scapular metastasis, a reactive/regenerative hepatocellular focus cannot be entirely excluded (can also be ER positive). A diagnosis of malignancy cannot be made with certainty in this case based on the current studies. Additional studies to further refine this interpretation on additional cell block material are pending and will be reported in an addendum. Dr. Freitas has reviewed this case and concurs. A cell block was prepared in the evaluation of this specimen. Smears and cell block reveal similar findings. 1. LIVER - CT GUIDED LIVER FINE NEEDLE ASPIRATION CONTINUED ON NEXT PAGE * ML=Testing performed at Main Lab DEPARTMENT OF PATHOLOGY, [address] [place] [address] Tesfaye Zacarias M.D. Director [facility] # [id number] RUN DATE: 02/24/17 [facility] LAB LIVE PAGE 3 Patient: MOMO KEARNEY [id number] (Continued) CLINICAL HISTORY (Continued) CLINICAL HISTORY Bladder cancer (2005), breast cancer (2010), possible metastasis. PRE-OPERATIVE DIAGNOSIS L GROSS DESCRIPTION CT Guided, fine needle aspiration x 5 passes with 7 Alcohol fixed slide(s) and 2 needle rinse in formalin for cell blocks labeled [id number] and [id number]. Signed (signature on file) Tesfaye Zacarias MD 1149 END OF REPORT * ML=Testing performed at Main Lab DEPARTMENT OF PATHOLOGY, [address] [place] [address] Tesfaye Zacarias M.D. Director [facility] # [id number] 6 SEE RESULT BELOW Name: MOMO KEARNEY : [address]: Doris Castellanos MD Acct: [id number] Unit: [id number] AGE: 66 Location: Re02/16/17 SEX: F Status: REG REF SPEC: [id number] AISHWARYA: 02/16/17-[address] [facility] DR: Doris Castellanos MD REQ: [id number] RECD: 02/16/17-1099 STATUS: CHERI HOFF DR: Mac Austin MD _ ORDERED: FNA-IMG GUID BX, CY ADEQ-ADDL P/4, LEVEL 4/2, CYTO ADEQ-1ST P, IMMUNO-FI IMMUNO-ADDL/4 FINAL DIAGNOSIS Liver, CT guided fine needle aspiration: --Atypical? scattered atypical groups suspicious for metastatic carcinoma of breast origin. See comment. Comment: The majority of the sampled tissue consists of benign and reactive hepatocellular elements including small bile ducts fragments. A few atypical epithelial groups are noted within the aspirate smear material as well as the formalin fixed cell block demonstrating increase N: C ratio with dense eosinophilic cytoplasm and mild to moderately pleomorphic hyperchromatic nuclei with irregular nuclear contours. A few groups are isolated from the liver parenchyma and a few are insinuated within reactive liver. The following immunohistochemical stains are performed with appropriate controls on formalin fixed cell block material. ER positive, 2?3 plus in atypical population, 1+ background in hepatocellular component, negative and bile ducts DE negative CK7 positive in epithelial and bile duct elements CK5/6 noncontributory P63 negative The patient's prior scapular biopsy (CN14?1219) was reviewed. The malignant groups in that specimen are morphologically similar to the atypical groups seen in the current material though the bone lesion cells demonstrated a few definitive CONTINUED ON NEXT PAGE * ML=Testing performed at Main Lab DEPARTMENT OF PATHOLOGY, [address] [place] [address] Tesfaye Zacarias M.D. Director [facility] # [id number] RUN DATE: 02/23/17 [facility] LAB LIVE PAGE 2 Patient: MOMO KEARNEY [id number] (Continued) SPECIMEN COMMENTS (Continued) glandular structures and a few scattered intracytoplasmic mucin vacuoles not seen here. Additionally the ER expression in the bone lesion is somewhat less intense than that seen in the current atypical groups in the liver biopsy. The findings in this case are admittedly subtle and the atypical groups are quite scant in an otherwise very ample specimen. Though the atypical cell population is morphologically similar to the metastatic carcinoma noted in this patient's prior scapular metastasis, a reactive/regenerative hepatocellular focus cannot be entirely excluded (can also be ER positive). A diagnosis of malignancy cannot be made with certainty in this case based on the current studies. Additional studies to further refine this interpretation on additional cell block material are pending and will be reported in an addendum. Dr. Freitas has reviewed this case and concurs. A cell block was prepared in the evaluation of this specimen. Smears and cell block reveal similar findings. 1. LIVER - CT GUIDED LIVER FINE NEEDLE ASPIRATION CLINICAL HISTORY Bladder cancer (2006), breast cancer (2011), possible metastasis. PRE-OPERATIVE DIAGNOSIS L GROSS DESCRIPTION CT Guided, fine needle aspiration x 5 passes with 7 Alcohol fixed slide(s) and 2 needle rinse in formalin for cell blocks labeled [id number] and [id number]. Signed (signature on file) Tesfaye Zacarias MD 1149 END OF REPORT * ML=Testing performed at Main Lab DEPARTMENT OF PATHOLOGY, [address] [place] [address] Tesfaye Zacarias M.D. Director [facility] # [id number] 7 Because ethnic data is not always readily available, this report includes an eGFR for both -Americans and non- Americans. The National Kidney Disease Education Program (NKDEP) does not endorse the use of the MDRD equation for patients that are not between the ages of 18 and 70, are , have extremes of body size, muscle mass, or nutritional status, or are non- or non-. According to the National Kidney Foundation, irrespective of diagnosis, the stage of the disease is based on the level of kidney function: Stage Description GFR(mL/min/1.73 m(2)) 1 Kidney damage with normal or decreased GFR 90 2 Kidney damage with mild decrease in GFR 60-89 3 Moderate decrease in GFR 30-59 4 Severe decrease in GFR 15-29 5 Kidney failure <15 (or dialysis) 8 SEE RESULT BELOW Name: MOMO KEARNEY : [address]: Doris Castellanos MD Acct: [id number] Unit: [id number] AGE: 67 Location: Re03/28/14 SEX: F Status: REG REF SPEC: [id number] AISHWARYA: 03/28/14-[address] [facility] DR: Mac Austin MD REQ: [id number] RECD: 03/28/14 STATUS: CHERI HOFF DR: Doris Castellanos MD _ ORDERED: FNA-IMG GUID BX, ESTRO REC ST, PTH HANDLING CH/2, LEVEL 4/3, CYTO ADEQ-[address]-ADD, ILO2JP-XMM, WT-1-ADD, PRAS-ADD Addendum: Per Dr. Castellanos's request an immunohistochemical stain for antigen receptor protein was performed at [facility] laboratories with appropriate controls on the formalin fixed material and interpreted by [facility] pathology. Androgen receptor protein negative Addendum Signed (signature on file) Tesfaye Zacarias MD 132[address] [facility] results received from [facility], [facility] on 05/09/14. A copy of the report is available for review in Pathology Results. Addendum Signed (signature on file)___Luisa_ Tesfaye Zacarias MD 1431 Her2/Raymon by FISH has been performed at [place], [place]. The testing reveals: / Original report scanned in Pathology Results. Addendum Signed (signature on file) Tesfaye Zacarias MD 1524 FINAL DIAGNOSIS Right scapula, CT guided fine needle aspiration: Malignant- metastatic carcinoma most compatible with breast primary. See comment. CONTINUED ON NEXT PAGE DEPARTMENT OF PATHOLOGY, [address] [place] [address] Tesfaye Zacarias M.D. Director [facility] # [id number] RUN DATE: 06/22/17 [facility] LAB LIVE PAGE 2 Patient: MOMO KEARNEY [id number] (Continued) FINAL DIAGNOSIS (Continued) The aspirate smears and formalin fixed cell block material demonstrate similar findings both demonstrates largely discohesive cytologically malignant epithelial population consisting of intact individual epithelial elements and small epithelial groups composed of cells demonstrating moderate nuclear pleomorphism moderate N: C ratio, irregular nuclear contours with visible nucleoli. Mitotic figures are not seen. Background demonstrates some mucinous debris and rare cells demonstrate intracytoplasmic mucin vacuoles suggesting some mucinous differentiation of the tumor. The following immunohistochemical stains were performed on formalin fixed cell block material WT-1 negative ER positive, 1-2+, 70% of tumor cells. DE negative HER-2/RAYMON indeterminant, 2+ (FISH for gene application can be performed upon request) Vimentin negative in tumor elements with primary background in debris The morphologic features and immunohistochemical staining pattern are most compatible with metastatic carcinoma of breast origin and are compatible with the patient's status history of breast carcinoma with mucinous differentiation and indeterminant HER-2 expression. Uterine carcinoma is unlikely given the negative WT-1 and negative Vimentin stains and bladder carcinoma is unlikely given the positive ER stain. Given the stated history of previous negative FISH for HER-2 amplification the study will be repeated upon physician request. Dr. Freitas has reviewed this case and concurs. A cell block was prepared in the evaluation of this specimen. Smears and cell block reveal similar findings. CONTINUED ON NEXT PAGE DEPARTMENT OF PATHOLOGY, [address] [place] [address] Tesfaye Zacarias M.D. Director [facility] # [id number] RUN DATE: 06/22/17 [facility] LAB LIVE PAGE 3 Patient: MOMO KEARNEY [id number] (Continued) SPECIMEN COMMENTS (Continued) Scapula part - Right scapular lesion, CT guided aspiration CLINICAL HISTORY Metastatic breast cancer, Endometrial cancer 2005, Bladder cancer 2006 2009 IMMEDIATE INTERPRETATION Pass 1 through [address] Guided, fine needle aspiration x 4 passes with 1 Alcohol fixed slide(s) and 3 needle rinse in formalin for cell block labeled [id number], [id number], and CN14- 1219C (core biopsy). Signed (signature on file) Tesfaye Zacarias MD 0955 END OF REPORT DEPARTMENT OF PATHOLOGY, [address] [place] [address] Tesfaye Zacarias M.D. Director [facility] # [id number] Procedures Date Code Description Status 04/27/2018 25843 ECHO Transthoracic, Real-Time 2D With Doppler And Color Completed Flow 04/23/2018 87128 Holter Monitor Review (24 hr)dr review & interp only Completed 04/22/2018 13569 ECG Monitor/Recording W/Visual Superimposition Scanning Completed 04/13/2018 41075 EKG Tracing & Interpretation Completed 01/11/2018 87060 EKG Tracing & Interpretation Completed 01/11/2018 54649 EKG Tracing & Interpretation Completed 11/17/2017 13205 EKG Tracing & Interpretation Completed 07/14/2017 65246 Stress Test Completed 07/14/2017 54503 Myocardial Perfusion Imaging Tomographic (Spect) Multiple Completed Studies 05/27/2017 38242 Holter Monitor Review (24 hr) review & interp only Completed 05/25/2017 53385 ECG Monitor/Recording W/Visual Superimposition Scanning Completed 05/22/2017 06252 Moderate Sedation Services; Same Phys Each Additional 15 Completed Mins 05/22/2017 17790 Moderate Sedation Services; Same Phys Intl 15 Mins; PT >=5 Completed Years 05/22/2017 27169 Color Flow Doppler/Interp & Reprt Completed 05/22/2017 93679 Pulse Wave/Continuous-Interp.RPT Completed 05/22/2017 53132 Echocardiography, Transesophageal, Real Time W/Image 2D Completed W/W/O M-M 05/12/2017 95584 EKG Tracing & Interpretation Completed 04/30/2017 19278 ECHO Transthoracic, Real-Time 2D With Doppler And Color Completed Flow 04/30/2017 20374 ECHO Transthoracic, Real-Time 2D With Doppler And Color Completed Flow 03/12/2017 98976 EKG Tracing & Interpretation Completed 10/14/2016 12197 Holter Monitor Review (24 hr)dr review & interp only Completed 10/13/2016 37732 ECG Monitor/Recording W/Visual Superimposition Scanning Completed 09/22/2016 74987 EKG, Interpretation Only Completed 05/27/2016 34632 EKG Tracing & Interpretation Completed 03/17/2016 40076 ECHO Transthoracic, Real-Time 2D With Doppler And Color Completed Flow 03/16/2016 34712 Holter Monitor Review (24 hr) review & interp only Completed 03/13/2016 22184 ECG Monitor/Recording W/Visual Superimposition Scanning Completed 03/11/2016 74256 EKG Tracing & Interpretation Completed 11/07/2015 86482 Stress Test Supervsn W/Out I/R Completed 11/07/2015 42536 Treadmill Interp/Report Only Completed 08/30/2015 24369 Mobile Cardiovascular Telemetry Over 24 HR Up To 30 Days Completed 08/21/2015 06026 EKG Tracing & Interpretation Completed 08/19/2015 23711 Holter Monitor Review (24 hr)dr review & interp only Completed 08/16/2015 37461 ECG Monitor/Recording W/Visual Superimposition Scanning Completed 08/08/2015 08446 ECHO Transthorasic Realtime 2D W Doppler & Color Flow Hosp Completed 06/22/2015 66693 Fluoroscopic Guidance For Cent Completed 06/22/2015 08334 Ultrasound Guidance For Vascular Access Completed 06/22/2015 82311 Insertion Tunneled Cent Venous Cathr W Subcut Port 5 Yrs Completed Or Oldr Encounters Type Date Location Provider Dx Diagnosis Office Visit 04/13/2018 [facility] Nyasia S. Foster, I48.0 Paroxysmal atrial 9:30a Of Heel Nail Rasper N.P. fibrillation I10 Essential (primary) hypertension E66.9 Obesity, unspecified R94.31 Abnormal electrocardiogram [ECG] [EKG] Z68.30 Body mass index (BMI) 30.0-30.9, adult Office Visit 11/17/2017 [place] Qutaybeh S. I48.0 Paroxysmal atrial 3:00p Cardiology Germain Garcia fibrillation I10 Essential (primary) hypertension E66.9 Obesity, unspecified R00.0 Tachycardia, unspecified Office Visit 10/27/2017 10:30a [facility] Nyasia S. I48.0 Paroxysmal atrial Of Heel Nail Rasper Foster, N.P. fibrillation I10 Essential (primary) hypertension R94.31 Abnormal electrocardiogram [ECG] [EKG] R00.1 Bradycardia, unspecified Office Visit 08/25/2017 10:30a [facility] Nyasia S. I48.0 Paroxysmal atrial Of Heel Nail Rasper Foster, N.P. fibrillation I10 Essential (primary) hypertension I71.9 Aortic aneurysm of unspecified site, without rupture Office Visit 07/23/2017 [place] Nyasia S. R94.31 Abnormal 2:00p Cardiology Of Foster, N.P. electrocardiogram Heel Nail Rasper [ECG] [EKG] R60.9 Edema, unspecified I10 Essential (primary) hypertension I48.0 Paroxysmal atrial fibrillation R00.1 Bradycardia, unspecified Office Visit 06/04/2017 [place] Qutaybeh S. I48.0 Paroxysmal atrial 3:40p Cesar Garcia M.D. fibrillation I71.9 Aortic aneurysm of unspecified site, without rupture I10 Essential (primary) hypertension Office Visit 05/12/2017 11:00a [facility] Nyasia S. I48.0 Paroxysmal atrial Of Heel Nail Rasper Foster, N.P. fibrillation I71.9 Aortic aneurysm of unspecified site, without rupture I10 Essential (primary) hypertension R60.9 Edema, unspecified Office Visit 03/12/2017 [place] Carmela S. I48.0 Paroxysmal atrial 11:00a Cesar Garcia M.D. fibrillation I10 Essential (primary) hypertension I71.9 Aortic aneurysm of unspecified site, without rupture R00.1 Bradycardia, unspecified R60.9 Edema, unspecified Office Visit 10/21/2016 2:30p [facility] Mana Swartz, I48.0 Paroxysmal atrial PA fibrillation I10 Essential (primary) hypertension I71.9 Aortic aneurysm of unspecified site, without rupture R00.1 Bradycardia, unspecified Office Visit 08/25/2016 8:30a [facility] Mana Swartz I48.0 Paroxysmal atrial PA fibrillation R60.9 Edema, unspecified I10 Essential (primary) hypertension I71.9 Aortic aneurysm of unspecified site, without rupture Office Visit 05/27/2016 1:10p [place] Carmela S. R60.9 Edema, Cesar Garcia M.D. unspecified I48.0 Paroxysmal atrial fibrillation I10 Essential (primary) hypertension I71.9 Aortic aneurysm of unspecified site, without rupture R94.31 Abnormal electrocardiogram [ECG] [EKG] Office Visit 04/25/2016 9:30a [facility] Mana Swartz, R60.9 Edema, unspecified Of Heel Nail Rasper PA I48.0 Paroxysmal atrial fibrillation I10 Essential (primary) hypertension I71.9 Aortic aneurysm of unspecified site, without rupture Office Visit 03/28/2016 9:45a [facility] Mana Swartz R60.9 Edema, unspecified Of Heel Nail Rasper PA I48.0 Paroxysmal atrial fibrillation I10 Essential (primary) hypertension Office Visit 03/11/2016 3:00p [facility] Mana Swartz I48.0 Paroxysmal atrial Of Heel Nail Rasper PA fibrillation R60.9 Edema, unspecified R06.02 Shortness of breath Office Visit 11/29/2015 9:30a [facility] Mana Swartz, I48.0 Paroxysmal atrial Of Heel Nail Rasper PA fibrillation I71.9 Aortic aneurysm of unspecified site, without rupture I10 Essential (primary) hypertension Office Visit 11/19/2015 8:40a [facility] Qutaybeh S. R06.02 Shortness of Germain Garcia breath I10 Essential (primary) hypertension I71.9 Aortic aneurysm of unspecified site, without rupture I48.0 Paroxysmal atrial fibrillation Office Visit 08/21/2015 [place] Qutaybeh S. C50.919 Malignant 9:20a Cardiology Germain Garcia neoplasm of unsp site of unspecified female breast R94.31 Abnormal electrocardiogram [ECG] [EKG] I10 Essential (primary) hypertension I71.9 Aortic aneurysm of unspecified site, without rupture E66.9 Obesity, unspecified R00.0 Tachycardia, unspecified R06.02 Shortness of breath Plan of Treatment 05/04/2018 - Ny[facility] Gonzalez N.PAnirudhI48.0 Paroxysmal atrial fibrillationFollow up: 11/2018 QSMRecommendations:NO afib on holter, just supraventricular tachycardia. Continue Xarelto You can take an extra dose ofcardizem if you have a persistently fast heart rhythm. Stay well hydrated. If rhythm becomes more bothersome, let us know and we can potentially adjust medicines or sent you back to see Dr Cee voss on antiarrhythmics. [facility] is a way to track your heart rhythm.R94.31 Abnormal electrocardiogram [ECG] [EKG]I10 Essential (primary) skqbddxzlbtoL26.1 Atrial premature ajculzzkccysjmV44.1 Supraventricular tachycardia
[2018-05-17] MEDS ORDERED: Vancomycin per Pharmacy* NOTE FOLLOW UP PRN (17:23)
[2018-05-17] MEDS: Diltiazem TAB* 30 MG PO SCH (20:01)
[2018-05-17] MEDS: NS 0.9% 1000 ML** 1,000 ML IV SCH (20:01)
[2018-05-17] MEDS ORDERED: Cephalexin CAP* 500 MG PO SCH (21:00)
[2018-05-17] MEDS: Cyanocobalamin TAB* 500 MCG PO SCH (23:44)
[2018-05-17] MEDS: PRESERVISION PO SCH (23:44)
[2018-05-17] MEDS: traMADol TAB* 50 MG PO PRN (23:44)
[2018-05-18] MEDS ORDERED: Vancomycin Random Level* NOTE FOLLOW UP ONE (06:00)
[2018-05-18 06:45] LABS: ABS Basophils 0.1 10^3/ul (0-0.2); ABS Eosinophils 0.1 10^3/ul (0-0.6); ABS Lymphocytes 0.6 10^3/ul (1.0-4.8); ABS Monocytes 1.1 10^3/ul (0-0.8); ABS Neutrophils 5.9 10^3/ul (1.5-7.7); ABS Nucleated RBC 0 10^3/ul; Eosinophil % 0.7 %; Hematocrit 42 % (35-47); Hemoglobin 13.7 g/dl (12.0-16.0); Lymphocyte % 8.4 %; Mean Corpuscular HGB Conc 33 g/dl (31-36); Mean Corpuscular Hemoglobin 35 pg (27-31); Mean Corpuscular Volume 107 fL (80-97); Mean Platelet Volume 8.3 fL (7.4-10.4); Nucleated Red Blood Cells % 0; Platelet Count 183 10^3/ul (150-450); Red Cell Distribution Width 18 % (10.5-15); White Blood Count 7.7 10^3/ul (3.5-10.8)
[2018-05-18 06:55] LABS: Albumin 2.8 g/dL (3.2-5.2); Albumin/Globulin Ratio 1.2 (1-3); BUN/Creatinine Ratio 19.6 (8-20); Calcium 9.5 mg/dL (8.6-10.3); EGFR Non-African American 36.4 (>60); Globulin 2.4 g/dL (2-4); Potassium 4.6 mmol/L (3.5-5.0); Total Bilirubin 2.5 mg/dL (0.2-1.0); Total Protein 5.2 g/dL (6.4-8.9)
[2018-05-18 07:01] LABS: Vancomycin Random 8.7 mcg/mL
[2018-05-18] MEDS: NS 0.9% 1000 ML** 1,000 ML IV SCH ×2 (07:20→19:25)
[2018-05-18] MEDS: Diltiazem TAB* 30 MG PO SCH ×2 (08:37→20:08)
[2018-05-18] MEDS: Rivaroxaban TAB(*) 15 MG PO SCH (08:37)
[2018-05-18] MEDS: Potassium Chlor TAB* 10 MEQ TAB.ER PO SCH (08:38)
[2018-05-18] MEDS: Ondansetron ODT TAB* 4 MG PO PRN (09:43)
[2018-05-18] MEDS: Vancomycin(*) 1,000 MG in NS 0.9% 250 ML* 250 ML IVPB SCH ×2 (09:48→20:06)
[2018-05-18] MEDS: PRESERVISION PO SCH ×2 (09:48→20:09)
[2018-05-18] MEDS: Cyanocobalamin TAB* 500 MCG PO SCH (16:54)
[2018-05-18] MEDS ORDERED: Metoprolol Tartrate IV* 1 MG/ML 5 ML VIAL IV ONE (21:29)
[2018-05-18] MEDS ORDERED: Metoprolol Tartrate IV* 1 MG/ML 5 ML VIAL ONE (21:32)
[2018-05-18] MEDS ORDERED: Diltiazem IV* 5 MG/ML 5 ML VIAL (for loading dose/IV Push) (25 MG) IV SLOW PU ONE (21:42)
--- NOTE | 2018-05-18 21:58 | PN ---
Hospitalist Progress Note Date of Service: 05/18/18 On-call hospitalist Note: 9:20PM Nurse reports tachycardia of 160's. Advised EKG. EKG showed atrial fibrillation. Patient lying in bed, not in distress lungs: clear, no tahcypnea heart: no chest wall tenderness, tachycardic. ordered one dose metoprolol 5mg IV push X one dose. Nurse reports that patient received her oral dose of cardizem 30 mins earlier. Will monitor HR, if continues to be elevated- will give cardizem 10mg IV X one - discussed with nurse if in 30 mins after giving metoprolol- HR > 130, and BP > 110, to give cardizem 10mg X one. Nurse to inform Dr. Epstein (oncologist/primary team) regarding the event. 10:40 pm: Spoke to the floor, patient converted to sinus rhythm at 10:00 PM: Currently HR is 80's sinus rhythm. They did not have to give the cardizem IV that I had ordered.
[2018-05-19 04:42] LABS: ABS Basophils 0 10^3/ul (0-0.2); ABS Eosinophils 0 10^3/ul (0-0.6); ABS Lymphocytes 0.7 10^3/ul (1.0-4.8); ABS Monocytes 1.2 10^3/ul (0-0.8); ABS Neutrophils 7.1 10^3/ul (1.5-7.7); ABS Nucleated RBC 0 10^3/ul; Eosinophil % 0.3 %; Hematocrit 40 % (35-47); Hemoglobin 13.1 g/dl (12.0-16.0); Lymphocyte % 7.3 %; Mean Corpuscular HGB Conc 33 g/dl (31-36); Mean Corpuscular Hemoglobin 35 pg (27-31); Mean Corpuscular Volume 105 fL (80-97); Mean Platelet Volume 8.2 fL (7.4-10.4); Nucleated Red Blood Cells % 0; Platelet Count 181 10^3/ul (150-450); Red Blood Count 3.75 10^6/ul (4.00-5.40); Red Cell Distribution Width 18 % (10.5-15)
[2018-05-19 04:59] LABS: Albumin 2.8 g/dL (3.2-5.2); Albumin/Globulin Ratio 1.3 (1-3); BUN/Creatinine Ratio 17.6 (8-20); Calcium 9.1 mg/dL (8.6-10.3); EGFR African American 54.4 (>60); Globulin 2.2 g/dL (2-4); Potassium 4.2 mmol/L (3.5-5.0); Total Bilirubin 3.7 mg/dL (0.2-1.0)
[2018-05-19] MEDS: NS 0.9% 1000 ML** 1,000 ML IV SCH (07:44)
[2018-05-19] MEDS: Ondansetron ODT TAB* 4 MG PO PRN ×2 (07:44→15:24)
[2018-05-19] MEDS: PRESERVISION PO SCH ×2 (09:21→20:42)
[2018-05-19] MEDS: Rivaroxaban TAB(*) 15 MG PO SCH (09:21)
[2018-05-19] MEDS: Diltiazem TAB* 30 MG PO SCH ×2 (09:21→20:42)
[2018-05-19] MEDS: Potassium Chlor TAB* 10 MEQ TAB.ER PO SCH (09:21)
[2018-05-19] MEDS: Vancomycin(*) 1,000 MG in NS 0.9% 250 ML* 250 ML IVPB SCH ×2 (09:21→20:40)
--- NOTE | 2018-05-19 10:31 | PN ---
Progress Note - Progress Note Date of Service: 05/19/18 SOAP: Subjective: mentally clearer but significant fecal incontinence. very tired. feels SOB when she ambulates. overall just very weak and realistic about outcomes. had afib w RVR overnight. better now. Objective: Vital Signs Temp Pulse Resp BP Pulse Ox 98.1 F 85 18 112/58 98 05/19/18 07:33 05/19/18 07:33 05/19/18 08:00 05/19/18 07:33 05/19/18 07:33 lying flat, ill appearing perr eomi op dry dec bs bases regular soft relatively nontender, +bs 1+ LE edema bl both legs less red, though still erythematous, less weaping A+0 x 3, more coherent today Laboratory Results - last 24 hr 05/19/18 05/19/18 05/19/18 04:30 04:30 04:30 WBC 9.0 RBC 3.75 L Hgb 13.1 Hct 40 MCV 105 H MCH 35 H MCHC 33 RDW 18 H Plt Count 181 MPV 8.2 Neut % (Auto) 78.7 Lymph % (Auto) 7.3 [place] % (Auto) 13.3 Eos % (Auto) 0.3 Baso % (Auto) 0.4 Absolute Neuts (auto) 7.1 Absolute Lymphs (auto) 0.7 L Absolute Monos (auto) 1.2 H Absolute Eos (auto) 0 Absolute Basos (auto) 0 Absolute Nucleated RBC 0 Nucleated RBC % 0 Sodium 134 L Potassium 4.2 Chloride 107 Carbon Dioxide 22 Anion Gap 5 BUN 21 Creatinine 1.19 H Est GFR ( Amer) 54.4 Est GFR (Non-Af Amer) 45.0 BUN/Creatinine Ratio 17.6 Glucose 94 Calcium 9.1 Total Bilirubin 3.70 H AST 212 H ALT 120 H Alkaline Phosphatase 536 H Ammonia 55 H Total Protein 5.0 L Albumin 2.8 L Globulin 2.2 Albumin/Globulin Ratio 1.3 Cyanocobalamin (Vitamin B12 Tab*) 1,000 mcg PO DAILY@1700 [facility] Last Admin: 05/18/18 16:54 Dose: 1,000 mcg Diltiazem HCl (Cardizem Tab*) 30 mg PO BID [facility] Last Admin: 05/19/18 09:21 Dose: 30 mg Docusate Sodium (Colace Cap*) 100 mg PO DAILY PRN PRN Reason: CONSTIPATION Hydroxyzine HCl (Atarax Tab*) 25 mg PO TID PRN PRN Reason: ITCHING Last Admin: 05/18/18 12:30 Dose: 25 mg Sodium Chloride (Ns 0.9% 1000 Ml) 1,000 mls @ 100 mls/hr IV PER RATE [facility] Last Admin: 05/19/18 07:44 Dose: 100 mls/hr Vancomycin HCl 1,000 mg/ (Sodium Chloride) 250 mls @ 166.667 mls/hr IVPB Q12H [facility] Last Admin: 05/19/18 09:21 Dose: 166.667 mls/hr Metoprolol Tartrate (Lopressor Tab*) 50 mg PO Q12HR [facility] Pto: Preservision (Tablets) 1 dose PO BID [facility] Last Admin: 05/19/18 09:21 Dose: 1 dose Ondansetron HCl (Zofran Odt Tab*) 4 mg PO Q6H PRN PRN Reason: NAUSEA Last Admin: 05/19/18 07:44 Dose: 4 mg Pharmacy Consult (Vancomycin Per Pharmacy*) 1 note FOLLOW UP . PRN PRN Reason: PER PROTOCOL Pharmacy Profile Note (Vancomycin Trough Check) 1 note FOLLOW UP 0830 ONE Stop: 05/20/18 08:31 Potassium Chloride (Klor Con Er Tab*) 10 meq PO QAM [facility] Last Admin: 05/19/18 09:21 Dose: 10 meq Prochlorperazine (Compazine Tab*) 10 mg PO Q6H PRN PRN Reason: NAUSEA Rivaroxaban (Xarelto(*)) 20 mg PO DAILY [facility] Scopolamine (Transderm-Scop 1.5 Mg Patch*) 1 patch TRANSDERM Q72HR PRN PRN Reason: NAUSEA Tramadol HCl (Ultram*) 50 mg PO BID PRN PRN Reason: PAIN Last Admin: 05/17/18 23:44 Dose: 50 mg Assessment: 67 yo F w end stage metastatic breast cancer admitted with progressive liver failure, renal failure and cellulitis. Clinically slowly improving from cellulitis stand point, but liver function deteriorating, and clear that she can no longer receive palliative chemotherapy. We had discussed this at length in the past and again today. She and her are very realistic and interested in home hospice. We will plan to continue IV antibiotics through Thursday and then transition to PO for the duration of treatment. Given the frequent diarrhea and QOL concern we will stop the lactulose in favor of being more confused but more comfortable. She will be DNR/DNI.
[2018-05-19] MEDS ORDERED: Metoprolol Tartrate TAB* 25 MG PO ONE (11:26)
[2018-05-19] MEDS: Cyanocobalamin TAB* 500 MCG PO SCH (16:22)
[2018-05-19] MEDS: Metoprolol Tartrate TAB* 50 mg PO SCH (20:42)
[2018-05-20] MEDS: traMADol TAB* 50 MG PO PRN (01:21)
[2018-05-20 05:07] LABS: ABS Basophils 0 10^3/ul (0-0.2); ABS Eosinophils 0 10^3/ul (0-0.6); ABS Lymphocytes 0.6 10^3/ul (1.0-4.8); ABS Monocytes 1.2 10^3/ul (0-0.8); ABS Neutrophils 7.2 10^3/ul (1.5-7.7); ABS Nucleated RBC 0 10^3/ul; Eosinophil % 0.4 %; Hematocrit 39 % (35-47); Hemoglobin 12.8 g/dl (12.0-16.0); Lymphocyte % 6.6 %; Mean Corpuscular HGB Conc 33 g/dl (31-36); Mean Corpuscular Hemoglobin 35 pg (27-31); Mean Corpuscular Volume 106 fL (80-97); Mean Platelet Volume 8.2 fL (7.4-10.4); Nucleated Red Blood Cells % 0; Platelet Count 190 10^3/ul (150-450); Red Blood Count 3.62 10^6/ul (4.00-5.40); Red Cell Distribution Width 18 % (10.5-15)
[2018-05-20 05:22] LABS: Albumin 2.5 g/dL (3.2-5.2); Albumin/Globulin Ratio 1.1 (1-3); BUN/Creatinine Ratio 16.4 (8-20); Calcium 9.3 mg/dL (8.6-10.3); EGFR African American 59.6 (>60); EGFR Non-African American 49.2 (>60); Globulin 2.3 g/dL (2-4); Potassium 4.7 mmol/L (3.5-5.0); Total Bilirubin 4.7 mg/dL (0.2-1.0); Total Protein 4.8 g/dL (6.4-8.9)
[2018-05-20 05:23] LABS: Vancomycin Trough 20.1 mcg/mL
[2018-05-20] MEDS ORDERED: Vancomycin Trough Check NOTE FOLLOW UP ONE (08:30)
[2018-05-20] MEDS: Ondansetron ODT TAB* 4 MG PO PRN ×2 (09:06→19:48)
[2018-05-20] MEDS ORDERED: Furosemide IV* 10 MG/ML 2 ML VIAL (20 MG) IV ONE (09:43)
[2018-05-20] MEDS: Vancomycin(*) 1,000 MG in NS 0.9% 250 ML* 250 ML IVPB SCH (10:04)
--- NOTE | 2018-05-20 10:09 | PN ---
Progress Note - Progress Note Date of Service: 05/20/18 SOAP: Subjective: [Anxious to get home. Reports some increasing dyspnea with ambulation, nothing at rest. Lower extremities are still erythematous, but not spreading. Feels like solids and liquids are a little difficult to swallow, nothing is getting stuck. Afebrile.] Objective: [ Cyanocobalamin (Vitamin B12 Tab*) 1,000 mcg PO DAILY@1700 [facility] Last Admin: 05/19/18 16:22 Dose: 1,000 mcg Diltiazem HCl (Cardizem Tab*) 30 mg PO BID [facility] Last Admin: 05/19/18 20:42 Dose: 30 mg Docusate Sodium (Colace Cap*) 100 mg PO DAILY PRN PRN Reason: CONSTIPATION Furosemide (Lasix Iv*) 20 mg IV ONCE ONE Stop: 05/20/18 09:44 Hydroxyzine HCl (Atarax Tab*) 25 mg PO TID PRN PRN Reason: ITCHING Last Admin: 05/18/18 12:30 Dose: 25 mg Vancomycin HCl 750 mg/ Sodium (Chloride) 250 mls @ 166.667 mls/hr IVPB 0000, 1200 [facility] Metoprolol Tartrate (Lopressor Tab*) 50 mg PO Q12HR [facility] Last Admin: 05/19/18 20:42 Dose: 50 mg Pto: Preservision (Tablets) 1 dose PO BID [facility] Last Admin: 05/19/18 20:42 Dose: 1 dose Nystatin (Nystatin Suspension*) 500,000 units PO QID [facility] Stop: 05/27/18 09:47 Ondansetron HCl (Zofran Odt Tab*) 4 mg PO Q6H PRN PRN Reason: NAUSEA Last Admin: 05/20/18 09:06 Dose: 4 mg Pharmacy Consult (Vancomycin Per Pharmacy*) 1 note FOLLOW UP . PRN PRN Reason: PER PROTOCOL Pharmacy Profile Note (Scopolamine Patch Remove*) 1 note PATCH OFF 1500 [facility] Pharmacy Profile Note (Vancomycin Trough Check) 1 note FOLLOW UP 1130 ONE Stop: 05/21/18 11:31 Potassium Chloride (Klor Con Er Tab*) 10 meq PO QAM [facility] Last Admin: 05/19/18 09:21 Dose: 10 meq Prochlorperazine (Compazine Tab*) 10 mg PO Q6H PRN PRN Reason: NAUSEA Rivaroxaban (Xarelto(*)) 20 mg PO DAILY DORA Scopolamine (Transderm-Scop 1.5 Mg Patch*) 1 patch TRANSDERM Q72HR PRN PRN Reason: NAUSEA Last Admin: 05/19/18 17:54 Dose: 1 patch Tramadol HCl (Ultram*) 50 mg PO BID PRN PRN Reason: PAIN Last Admin: 05/20/18 01:21 Dose: 50 mg Laboratory Results - last 24 hr 05/20/18 05/20/18 04:45 04:45 WBC 9.0 RBC 3.62 L Hgb 12.8 Hct 39 MCV 106 H MCH 35 H MCHC 33 RDW 18 H Plt Count 190 MPV 8.2 Neut % (Auto) 79.9 Lymph % (Auto) 6.6 [place] % (Auto) 12.8 Eos % (Auto) 0.4 Baso % (Auto) 0.3 Absolute Neuts (auto) 7.2 Absolute Lymphs (auto) 0.6 L Absolute Monos (auto) 1.2 H Absolute Eos (auto) 0 Absolute Basos (auto) 0 Absolute Nucleated RBC 0 Nucleated RBC % 0 Sodium 135 Potassium 4.7 Chloride 107 Carbon Dioxide 22 Anion Gap 6 BUN 18 Creatinine 1.10 H Est GFR ( Amer) 59.6 Est GFR (Non-Af Amer) 49.2 BUN/Creatinine Ratio 16.4 Glucose 89 Calcium 9.3 Total Bilirubin 4.70 H AST 194 H ALT 113 H Alkaline Phosphatase 565 H Total Protein 4.8 L Albumin 2.5 L Globulin 2.3 Albumin/Globulin Ratio 1.1 Vancomycin Trough 20.1 Vital Signs: Temp Pulse Resp BP Pulse Ox 98.3 F 75 24 121/73 96 05/20/18 08:08 05/20/18 08:08 05/20/18 08:08 05/20/18 08:08 05/20/18 08:08 Exam: Gen: Chronically ill appearing but in NAD HEENT: MMM, mild thrush CV: RRR, no m/r/g Resp: few crackles at lung bases Abd: soft, non TTP Ext: 1-2+ edema, bilateral erythema from ankles to midcalf not extending past prior lines] Assessment: [67 yo female with metastatic breast CA who was admitted with sepsis secondary to cellulitis with associated MARQUISE and noted liver failure. ] Plan: [1. Sepsis secondary to cellulitis - improving - cont Vanco 2. MARQUISE secondary to sepsis - improved - now mildly dyspneic with crackles on exam - stop IVF, give one dose of IV Lasix this am and will resume usual oral torsemide tomorrow 3. Liver failure secondary to progressive liver metastases - cont hydroxyzine prn itching - palliative chemo will not be continued - plan for home hospice 4. Thrush - may be some esophageal candidiasis based on her swallowing complaints - start nystatin swish and swallow Dispo: anticipate dc home with sign on to home hospice likely tomorrow
[2018-05-20] MEDS: Potassium Chlor TAB* 10 MEQ TAB.ER PO SCH (10:46)
[2018-05-20] MEDS: Diltiazem TAB* 30 MG PO SCH ×2 (10:47→23:01)
[2018-05-20] MEDS: Rivaroxaban TAB(*) 20 MG TAB PO SCH (10:48)
[2018-05-20] MEDS: Metoprolol Tartrate TAB* 50 mg PO SCH ×2 (10:48→23:01)
[2018-05-20] MEDS: PRESERVISION PO SCH ×2 (10:49→23:00)
[2018-05-20] MEDS: Nystatin SUSPENSION* 100000 UNITS/ML 5 ML UDC PO SCH ×3 (13:32→23:00)
[2018-05-20] MEDS: Vancomycin(*) 750 MG in NS 0.9% 250 ML* 250 ML IVPB SCH ×2 (13:32→23:03)
[2018-05-20] MEDS: Cyanocobalamin TAB* 500 MCG PO SCH (16:57)
[2018-05-21] MEDS: Ondansetron ODT TAB* 4 MG PO PRN (06:42)
--- NOTE | 2018-05-21 09:55 | PN ---
Progress Note - Progress Note Date of Service: 05/21/18 SOAP: Subjective: []Doing fine, legs are stable. Wants to go home. does not like being in hospital. eating a little but not much. Has a little bit of thrush. Cyanocobalamin (Vitamin B12 Tab*) 1,000 mcg PO DAILY@1700 [facility] Last Admin: 05/20/18 16:57 Dose: 1,000 mcg Diltiazem HCl (Cardizem Tab*) 30 mg PO BID [facility] Last Admin: 05/20/18 23:01 Dose: 30 mg Docusate Sodium (Colace Cap*) 100 mg PO DAILY PRN PRN Reason: CONSTIPATION Hydroxyzine HCl (Atarax Tab*) 25 mg PO TID PRN PRN Reason: ITCHING Last Admin: 05/18/18 12:30 Dose: 25 mg Vancomycin HCl 750 mg/ Sodium (Chloride) 250 mls @ 166.667 mls/hr IVPB 0000, 1200 [facility] Last Admin: 05/20/18 23:03 Dose: 166.667 mls/hr Metoprolol Tartrate (Lopressor Tab*) 50 mg PO Q12HR [facility] Last Admin: 05/20/18 23:01 Dose: 50 mg Pto: Preservision (Tablets) 1 dose PO BID [facility] Last Admin: 05/20/18 23:00 Dose: 1 dose Nystatin (Nystatin Suspension*) 500,000 units PO QID [facility] Stop: 05/27/18 09:47 Last Admin: 05/20/18 23:00 Dose: 500,000 units Ondansetron HCl (Zofran Odt Tab*) 4 mg PO Q6H PRN PRN Reason: NAUSEA Last Admin: 05/21/18 06:42 Dose: 4 mg Pharmacy Consult (Vancomycin Per Pharmacy*) 1 note FOLLOW UP . PRN PRN Reason: PER PROTOCOL Pharmacy Profile Note (Scopolamine Patch Remove*) 1 note PATCH OFF 1500 [facility] Pharmacy Profile Note (Vancomycin Trough Check) 1 note FOLLOW UP 1130 ONE Stop: 05/21/18 11:31 Potassium Chloride (Klor Con Er Tab*) 10 meq PO QAM [facility] Last Admin: 05/20/18 10:46 Dose: 10 meq Prochlorperazine (Compazine Tab*) 10 mg PO Q6H PRN PRN Reason: NAUSEA Rivaroxaban (Xarelto(*)) 20 mg PO DAILY DORA Last Admin: 05/20/18 10:48 Dose: 20 mg Scopolamine (Transderm-Scop 1.5 Mg Patch*) 1 patch TRANSDERM Q72HR PRN PRN Reason: NAUSEA Last Admin: 05/19/18 17:54 Dose: 1 patch Tramadol HCl (Ultram*) 50 mg PO BID PRN PRN Reason: PAIN Last Admin: 05/20/18 01:21 Dose: 50 mg Objective: [] Vital Signs Temp Pulse Resp BP Pulse Ox 97.1 F 71 18 126/66 96 05/21/18 07:32 05/21/18 07:32 05/21/18 07:32 05/21/18 07:32 05/21/18 07:32 Exam: Gen: Chronically ill appearing but in NAD HEENT: MMM, mild thrush, CV: RRR, no m/r/g Resp: few crackles at lung bases Abd: soft, non TTP Ext: 1-2+ edema, bilateral erythema from ankles to midcalf not extending past prior lines] Assessment: [67 yo female with metastatic breast CA who was admitted with sepsis secondary to cellulitis with associated MARQUISE and noted liver failure. She want to go home with hospice, prognosis limited. ] Plan: [1. Sepsis secondary to cellulitis - improving - Vancomycin 1500 mg IV at homex 1 additional week and re-evaluate. 2. MARQUISE secondary to sepsis. Euvolemic, baseline diuretics. 3. Liver failure secondary to progressive liver metastases - cont hydroxyzine prn itching - Hospice at home. 4. Thrush - may be some esophageal candidiasis based on her swallowing complaints - continue Nystatin on discharge.
[2018-05-21] MEDS: PRESERVISION PO SCH (10:50)
[2018-05-21] MEDS: Nystatin SUSPENSION* 100000 UNITS/ML 5 ML UDC PO SCH ×2 (10:50→13:49)
[2018-05-21] MEDS: Rivaroxaban TAB(*) 20 MG TAB PO SCH (10:51)
[2018-05-21] MEDS: Diltiazem TAB* 30 MG PO SCH (10:51)
[2018-05-21] MEDS: Potassium Chlor TAB* 10 MEQ TAB.ER PO SCH (10:51)
[2018-05-21] MEDS: Metoprolol Tartrate TAB* 50 mg PO SCH (10:51)
[2018-05-21 11:24] VITALS: BP 113/73
[2018-05-21 11:29] LABS: EGFR African American 46.6 (>60); EGFR Non-African American 38.6 (>60)
[2018-05-21] MEDS ORDERED: Vancomycin Trough Check NOTE FOLLOW UP ONE (11:30)
[2018-05-21 11:51] LABS: Vancomycin Trough 18.8 mcg/mL
--- NOTE | 2018-05-21 11:55 | DS ---
DISCHARGE SUMMARY: DATE OF ADMISSION: 05/17/18 DATE OF ADMISSION: 05/21/18 DISCHARGE DIAGNOSES: 1. Progressive liver failure from metastatic breast cancer. 2. Cellulitis requiring IV antibiotics. 3. Cirrhosis. 4. Pruritus. HOSPITAL COURSE: She came in with bilateral lower extremity cellulitis, fevers, and increasing liver failure. It was determined liver failure was from her progressive disease. This is also causing lo wer extremity edema and itching, which led to the cellulitis. She has been on IV vancomycin now with improvement in infection, although slowly. Liver function tests have continued to deteriorate durin g the hospitalization. She is no longer a candidate for therapy and a decision was made to transitio n to hospice. Frustrated with being in the hospital, she would like to go home to . She is in [facility], so we can arrange for hospice services. IV vancomycin can be given at home. That will be separate from her hospice referral. She is found to have thrombosis and started on rivaroxaban [facility]. She will go home with several new medications. MEDICATIONS ON DISCHARGE: 1. Diltiazem 30 mg p.o. b.i.d., unchanged. 2. Docusate 100 mg p.o. daily. 3. Hydroxyzine 25 mg t.i.d. p.r.n., new medication. 4. Nystatin 500,000 units p.o. 4 times a day, 10 days, new medication. 5. Potassium 10 mEq p.o. q.a.m., unchanged. 6. Compazine 10 mg p.o. q.6 p.r.n., new medication. 7. Xarelto 20 mg p.o. daily, new medication. 8. Scopolamine patch q.72 hours, unchanged. 9. She will discontinue taking Tylenol at home for pain. 10. She will discontinue taking potassium at home for pain. 11. She will continue vitamin B12. 12. Continue Marinol 5 mg b.i.d. p.r.n. 13. Continue Claritin 10 mg p.o. q.a.m. 14. Continue metoprolol 50 mg p.o. b.i.d. 15. Hold valsartan 80 mg p.o. daily. FOLLOWUP: Will be with hospice referral and we will arrange for the IV antibiotics. Dr. Castellanos wi ll remain her hospice physician. [id number]/[facility] #: [id number]
[2018-05-21] MEDS: Vancomycin(*) 750 MG in NS 0.9% 250 ML* 250 ML IVPB SCH (12:40)
[2018-05-22] MEDS ORDERED: Scopolamine PATCH Remove* 1 NOTE MISC PATCH OFF SCH (15:00)
== END 2018-05-21 17:04 | disposition hospice, home (50) | DRG 872 ==
LOC: MEDTELE 16:46
PROVIDERS: ADMIT Internal Medicine Hematology & Oncology; ATTEND Internal Medicine Hematology & Oncology
DX: A41.9 Sepsis, unspecified organism (principal); L03.116 Cellulitis of left lower limb; N17.9 Acute kidney failure, unspecified; C79.51 Secondary malignant neoplasm of bone; C78.7 Secondary malignant neoplasm of liver and intrahepatic bile duct; C78.00 Secondary malignant neoplasm of unspecified lung; B37.0 Candidal stomatitis; L03.115 Cellulitis of right lower limb; K72.90 Hepatic failure, unspecified without coma; I48.91 Unspecified atrial fibrillation; I10 Essential (primary) hypertension; R11.0 Nausea; R19.7 Diarrhea, unspecified; R15.9 Full incontinence of feces; L29.9 Pruritus, unspecified; Z85.42 Personal history of malignant neoplasm of other parts of uterus; Z72.89 Other problems related to lifestyle; Z79.01 Long term (current) use of anticoagulants; Z85.51 Personal history of malignant neoplasm of bladder; Z85.3 Personal history of malignant neoplasm of breast; Z88.0 Allergy status to penicillin; Z88.8 Allergy status to other drugs, medicaments and biological substances; Z90.49 Acquired absence of other specified parts of digestive tract; Z90.710 Acquired absence of both cervix and uterus; Z90.721 Acquired absence of ovaries, unilateral; Z90.12 Acquired absence of left breast and nipple; Z80.3 Family history of malignant neoplasm of breast; Z80.51 Family history of malignant neoplasm of kidney; Z80.6 Family history of leukemia
CPT/HCPCS: 36415; 80053; 80202; 82140; 82565; 84484; 84520; 85025; 93005; 99223; 99232; 99233; 99239; A9270-GY; J1642; J1940; J3370; J3490; Q0164

== ENCOUNTER 2018-05-26 04:28 | Observation (INO) | payer MEDICARE, BC ==
[2018-05-26] MEDS ORDERED: NS 0.9% 1000 ML** 1,000 ML IV ONE ×2 (04:41→05:17)
--- NOTE | 2018-05-26 04:47 | ED ---
Complex/Multi-Sys Presentation - HPI Summary HPI Summary: Pt is a 67 y/o F presenting to the ED brought in by EMS for weakness. Per pts , the pt has been progressively getting worse due to hx of metastatic breast cancer. She went home from the hospital about 5 days ago and has been using a wheelchair since then, as well as continuing infusion of vancomycin for her cellulitis. She woke up around 0200 this date wanting to go to the bathroom , and lost her balance/fell about 5 or 6 times. The pt is not eating or drinking much. - History Of Current Complaint Chief Complaint: EDWeakness Time Seen by Provider: 05/26/18 04:29 Hx Obtained From: Family/Civil Engineer In Training - Hx From Patient Unobtainable Due To: Altered Mental Status Onset/Duration: Gradual Onset, Lasting Weeks, Still Present Timing: Constant Severity Currently: Moderate Severity Initially: Moderate Location: Negative Aggravating Factor(s): none Alleviating Factor(s): none Associated Signs And Symptoms: Positive: Confusion, Weakness, Decreased Oral Intake - Allergies/Home Medications Allergies/Adverse Reactions: Allergies Allergy/AdvReac Type Severity Reaction Status Date / Time hydrochlorothiazide Allergy Intermediate Rash And Verified 05/17/18 14:41 Itching Penicillins Allergy Intermediate Rash And Verified 05/17/18 14:41 Itching Adhesive Tape [Paper Tape] Allergy Mild Rash Verified 05/17/18 14:41 lisinopril Allergy Mild Coughing Verified 05/17/18 14:41 Iodine and Iodide Containing Allergy ORAL Verified 05/17/18 14:41 Produc CONTRAST GIVES HER SEVERE DIARRHEA PMH/Surg Hx/FS Hx/Imm Hx Previously Healthy: No Endocrine/Hematology History: Denies: Hx Diabetes Cardiovascular History: Reports: Hx Aneurysm - Ascending thoraxic aorta 5 cm, Hx Cardiomegaly, Hx Congenital Heart Disease - bicuspid valve instead of tricuspid vave, enlarged aorta, Hx Hypertension - CONTROLED WITH MEDS, Other Cardiovascular Problems/Disorders - A-FIB AND AORTIC ANEURYSM Denies: Hx Angina, Hx Pacemaker/ICD Respiratory History: Reports: Hx Pneumonia, Other Respiratory Problems/ Disorders - Hx Thoracentesis x 2 History: Reports: Other Problems/Disorders - BLADDER CANCER HAD SURGERY Denies: Hx Renal Disease Musculoskeletal History: Reports: Hx Arthritis - GENERAL, Other Musculoskeletal History - osteroarthritis right shoulder Sensory History: Reports: Hx Cataracts, Hx Contacts or Glasses Denies: Hx Hearing Aid Opthamlomology History: Reports: Hx Cataracts, Hx Contacts or Glasses Neurological History: Reports: Hx Migraine - AURAS Psychiatric History: Denies: Hx Panic Disorder - Cancer History Cancer Type, Location and Year: breast CA, secondary bone CA, secondary Liver CA Hx Chemotherapy: Yes Hx Radiation Therapy: Yes - Surgical History Surgery Procedure, Year, and Place: LEFT BREAST - MASTECTOMY THEN A SILICONE IMPLANTS. HYSTERECTOMY. CHOLECYSTECTOMY. BLADDER - TRANSURTHRAL RESECTION - Xs 2. CARDIAC CATH - W/O STENTS. LUNG/LIVER/RIGHT SCAPULA BIOPSIES. TONSILECTOMY Hx Anesthesia Reactions: No Infectious Disease History: No Infectious Disease History: Denies: Traveled Outside the [place] in Last 30 Days - Family History Known Family History: Positive: Hypertension, Other - Cancer Negative: Diabetes - Social History Alcohol Use: Occasionally Alcohol Amount: 1-2 GLASSES WINE/WEEK Hx Substance Use: No Substance Use Type: Reports: None Hx Tobacco Use: No Smoking Status (MU): Never Smoked Tobacco Have You Smoked in the Last Year: No Review of Systems Negative: Fever Positive: Weakness All Other Systems Reviewed And Are Negative: Yes Physical Exam - Summary Physical Exam Summary: VITAL SIGNS: Reviewed. GENERAL: Patient is a morbidly obese and lethargic female who is lying comfortable in the stretcher. Patient is not in any acute respiratory distress. HEAD AND FACE: No signs of trauma. No ecchymosis, hematomas or skull depressions. No sinus tenderness. EYES: PERRLA, EOMI x 2, No injected conjunctiva, no nystagmus. Ecteric sclera bilaterally. EARS: Hearing grossly intact. Ear canals and tympanic membranes are within normal limits. MOUTH: Oropharynx within normal limits. NECK: Supple, trachea is midline, no adenopathy, no JVD, no carotid bruit, no c- spine tenderness, neck with full ROM. CHEST: Symmetric, no tenderness at palpation LUNGS: Decreased breath sounds bilaterally. No wheezing or crackles. CVS: Regular rate and rhythm, S1 and S2 present, no murmurs or gallops appreciated. ABDOMEN: Soft, non-tender. Abd distended. No rebound no guarding, and no masses palpated. Bowel sounds are normal. EXTREMITIES: Bilateral lower extremity erythema. +1 to +2 bilateral lower extremity edema. NEURO: Lethargic. No acute neurological deficits. Speech is normal and follows commands. SKIN: Dry and warm Triage Information Reviewed: Yes Vital Signs On Initial Exam: Initial Vitals Temp Pulse Resp BP Pulse Ox 98.5 F 70 18 105/56 92 05/26/18 04:30 05/26/18 04:30 05/26/18 04:30 05/26/18 04:30 05/26/18 04:30 Vital Signs Reviewed: Yes Diagnostics - Vital Signs Vital Signs Temp Pulse Resp BP Pulse Ox 05/26/18 04:30 98.5 F 70 18 105/56 92 - Laboratory Result Diagrams: 05/26/18 05:09 05/26/18 05:09 Lab Statement: Any lab studies that have been ordered have been reviewed, and results considered in the medical decision making process. - Radiology Chest x-ray Radiology Interpretation Completed By: ED Physician Summary of Radiographic Findings: Bilateral diminished lung volume. L pleural effusion. Possible L lower lobe infiltrate vs. atelectasis. Pending official radiology report. - EKG 0447 Cardiac Rate: NL - 68bpm EKG Rhythm: Sinus Rhythm - 68bpm ST Segment: Normal Ectopy: None Summary of EKG Findings: Non specific T wave changes. Complex Multi-Symp Course/Dx Course Of Treatment: Pt is a 67 y/o F presenting to the ED brought in by EMS for weakness. Per pts , the pt has been progressively getting worse due to hx of metastatic breast cancer. She woke up around 0200 this date wanting to go to the bathroom, and lost her balance/fell about 5 or 6 times. The pt is not eating or drinking much. Pt received her vancomycin dose on 05/25/18 at 12 noon. The 6.1 potassium is hemolyzed as per lab techs. Spoke with the hospitalist who will be admitting the pt with dx of L lower lobe pneumonia, weakness, metastatic breast cancer, and acute renal insufficiency. - Diagnoses Provider Diagnoses: Left lower lobe pneumonia, Weakness, Metastatic cancer, Acute renal insufficiency - Critical Care Time Critical Care Time: 30-74 min - 45 minutes Discharge - Sign-Out/Discharge Documenting (check all that apply): Patient Departure - Discharge Plan Condition: Stable Disposition: ADMITTED TO [facility] Referrals: Kenrick Salomon MD [Primary Care Provider] - - Attestation Statements Document Initiated by Scribe: Yes Documenting Scribe: Kateryna Belle Provider For Whom Scribe is Documenting (Include Credential): Roby Mendosa MD. Scribe Attestation: Kateryna Velázquez, scribed for Roby Mendosa MD. on 05/26/18 at 0549. Status of Scribe Document: Ready Consult Consult: [id number] - Spoke with the hospitalist who will be admitting the pt to [facility] [place].
[2018-05-26 05:17] LABS: ABS Basophils 0 10^3/ul (0-0.2); ABS Eosinophils 0 10^3/ul (0-0.6); ABS Lymphocytes 0.5 10^3/ul (1.0-4.8); ABS Monocytes 1.2 10^3/ul (0-0.8); ABS Neutrophils 18.2 10^3/ul (1.5-7.7); ABS Nucleated RBC 0 10^3/ul; Eosinophil % 0 %; Hematocrit 47 % (35-47); Hemoglobin 15.4 g/dl (12.0-16.0); Lymphocyte % 2.3 %; Mean Corpuscular HGB Conc 33 g/dl (31-36); Mean Corpuscular Hemoglobin 35 pg (27-31); Mean Corpuscular Volume 107 fL (80-97); Mean Platelet Volume 7.8 fL (7.4-10.4); Nucleated Red Blood Cells % 0.1; Platelet Count 249 10^3/ul (150-450); Red Blood Count 4.37 10^6/ul (4.00-5.40); Red Cell Distribution Width 18 % (10.5-15)
[2018-05-26] MEDS ORDERED: Levofloxacin 750 MG IVPREMIX(* 750 MG/150 ML BAG IVPB ONE (05:17)
[2018-05-26 05:24] LABS: Activated Partial Thrombo Time 42.7 seconds (26.0-36.3); INR 2.73 (0.77-1.02)
[2018-05-26 05:37] LABS: Albumin 2.9 g/dL (3.2-5.2); Albumin/Globulin Ratio 1.1 (1-3); BUN/Creatinine Ratio 17.5 (8-20); C Reactive Protein 140.71 mg/L (<8.01); Calcium 11.7 mg/dL (8.6-10.3); EGFR African American 15.2 (>60); EGFR Non-African American 12.6 (>60); Globulin 2.7 g/dL (2-4); Magnesium 2.5 mg/dL (1.9-2.7); Total Bilirubin 9.5 mg/dL (0.2-1.0); Total Protein 5.6 g/dL (6.4-8.9)
[2018-05-26 05:40] LABS: Potassium 6.1 mmol/L (3.5-5.0); Troponin I 0.07 ng/mL (<0.04)
[2018-05-26 05:47] LABS: BNP 284 pg/mL (<=100)
[2018-05-26] MEDS ORDERED: Levofloxacin 500 MG IVPREMIX(* 500 MG/100 ML BAG IVPB ONE (05:50)
[2018-05-26 06:01] LABS: Urine Appearance Turbid; Urine Bilirubin Negative (Negative); Urine Blood Negative (Negative); Urine Color Amber; Urine Glucose Negative (Negative); Urine Ketones Negative (Negative); Urine Nitrite Negative (Negative); Urine Protein Negative (Negative); Urine Specific Gravity 1.014 (1.010-1.030); Urine Urobilinogen Negative (Negative)
[2018-05-26] MEDS ORDERED: Prochlorperazine TAB* 10 MG PO PRN (06:20)
[2018-05-26] MEDS ORDERED: Scopolamine 1.5 mg* PATCH TRANSDERM PRN (06:20)
[2018-05-26] MEDS ORDERED: Dronabinol CAP* 2.5 MG PO PRN (06:20)
[2018-05-26] MEDS ORDERED: hydrOXYzine HCL TAB* 25 MG PO PRN (06:20)
[2018-05-26] MEDS ORDERED: Docusate CAP* 100 MG PO PRN (06:20)
[2018-05-26] MEDS ORDERED: diPHENhydraMINE PO* 25 MG PO PRN (06:20)
[2018-05-26] MEDS ORDERED: Ondansetron INJ* 2 MG/ML VIAL IV PRN (06:22)
[2018-05-26] MEDS: Metoprolol Succinate XL TAB* 50 MG PO SCH ×2 (08:19→19:30)
[2018-05-26] MEDS: Nystatin SUSPENSION* 100000 UNITS/ML 5 ML UDC PO SCH ×4 (08:20→21:31)
[2018-05-26] MEDS ORDERED: Rivaroxaban TAB(*) 20 MG TAB PO SCH (09:00)
[2018-05-26] MEDS ORDERED: Potassium Chlor TAB* 10 MEQ TAB.ER PO SCH (09:00)
[2018-05-26] MEDS ORDERED: Torsemide TAB* 20 MG PO SCH (09:00)
[2018-05-26] MEDS ORDERED: Insulin LISPRO* 1 UNITS UNIT SUBCUT ONE (10:17)
[2018-05-26] MEDS ORDERED: Dextrose 50% Syringe 50 ML* 25 GM/50 ML SYRINGE IV PUSH ONE (10:20)
[2018-05-26] MEDS: NS 0.9% 1000 ML** 1,000 ML IV SCH ×2 (11:01→21:36)
--- NOTE | 2018-05-26 12:50 | HP ---
CC: Dr. Kenrick Salomon; Dr. Doris Castellanos * ADMISSION HISTORY AND PHYSICAL: DATE OF ADMISSION: 05/26/18 PRIMARY CARE PROVIDER: Dr. Kenrick Salomon. PRIMARY ONCOLOGIST: Dr. Doris Castellanos. ATTENDING PHYSICIAN: Dr. Marvel Epstein.* (DICTATED BY LUL MASSEY) ADMITTING PROVIDER: LUL Massey CHIEF COMPLAINT: Falls and weakness. HISTORY OF PRESENT ILLNESS: This is a 67-year-old female with metastatic breast cancer, who is well known to the oncology service and was recently discharged to home after admission for lower extremity cellulitis, on continued IV vancomycin. She was seen in the clinic earlier this week with concerns for progressive infection, the recommendations at that time had been to continue her current antibiotic regimen, but it became even more clear that patient was failing at home secondary to her metastatic disease and plans were to transition to hospice. Patient's family had been waiting for her to complete her antibiotics before enrolling in hospice. Her notes that she has been progressively edematous and confused and lethargic. She has had progressive weakness. Last night, patient got up in the night to use the restroom, but had fallen or nearly fallen [id number] times. It became clear that patient was declining quickly and her attempted to get her into their private car, but was unable to and subsequently called an ambulance. When patient arrived, her initial vitals were largely unremarkable. Labs demonstrated progressive liver failure, but new kidney failure and hyperkalemia that was initially thought to be due to a hemolyzed sample. When speaking to the patient, she reports that she has been progressively confused. She acknowledges that she gets small periods of time of reality, but occasionally has visual hallucinations and is finding it difficult to focus on conversation than other individuals in the room. She denies any pain or shortness of breath. Her legs are not bothersome and she has been afebrile at home. As mentioned above, she has continued on IV vancomycin since her discharge last week. PAST MEDICAL HISTORY: 1. Metastatic breast cancer. 2. Atrial fibrillation. 3. Hypertension. HOME MEDICATIONS: 1. Vitamin B12 1000 mcg p.o. daily. 2. Diltiazem 30 mg p.o. twice daily. 3. Diphenhydramine 25 mg p.o. daily as needed. 4. Docusate 100 mg p.o. daily as needed. 5. Marinol 5 mg p.o. twice daily as needed. 6. Loratadine 10 mg p.o. daily. 7. Metoprolol succinate 50 mg p.o. twice daily. 8. Nystatin 500,000 units p.o. 4 times daily. 9. Zofran 4 mg p.o. q.6 hours p.r.n. 10. Potassium chloride 10 mEq p.o. daily. 11. Vitamin B6 100 mg p.o. daily. 12. Scopolamine patch, 1 patch applied every 3 days as needed for nausea. 13. Torsemide 10 mg p.o. daily. 14. Tramadol 50 mg p.o. twice daily as needed for pain. 15. Hydroxyzine 25 mg p.o. 3 times daily as needed for itching. 16. Compazine 10 mg p.o. q.6 hours as needed for nausea. 17. Xarelto 20 mg p.o. daily. SOCIAL HISTORY: Patient lives at home with her . No history of smoking and occasional alcohol consumption. REVIEW OF SYSTEMS: As noted above in the HPI. All other review of systems are reviewed and otherwise negative. PHYSICAL EXAMINATION GENERAL: Chronically ill-appearing 67-year-old female, who appears lethargic, but alert and is in no acute distress. INITIAL VITALS: Temperature 98.5 degree Fahrenheit, pulse 70 beats per minute, respiratory rate 18, oxygen saturation 92% on room air, blood pressure 105/56 mmHg. HEENT: Head is normocephalic, atraumatic. Scleral icterus is noted; however, mucous membranes are moderately dry. RESPIRATORY: Decreased breath sounds in the left lower lobe with a few crackles. Right side appears to be clear to auscultation. CARDIOVASCULAR: Heart has a regular rate and rhythm without murmurs, rubs, or gallops. ABDOMEN: Mildly distended, but soft and nontender. EXTREMITIES: She has 2 to 3+ lower extremity edema. SKIN: Erythema covering the mid lower leg with some serous drainage with a bandage in place. DIAGNOSTIC STUDIES/LAB DATA: CBC shows white blood cell count of 20,000 with a hemoglobin of 15.4 g/dL and platelet count 249,000. INR of 2.73 with PTT of 42. The comprehensive metabolic panel shows sodium of 129 mmol/L, potassium of 6.1, and on repeat 5.8. BUN 63 with a creatinine of 3.59. Lactic acid 2.1 on admission and on repeat 1.6. Total bilirubin is 9.5. AST of 280, ALT of 197. Ammonia 60. Troponin 0.07. CRP of 140. BNP 284. Urinalysis is unremarkable. Imaging: Chest x-ray is of poor quality, but demonstrates what appears to be a new left pleural effusion versus infiltrate. ASSESSMENT AND PLAN: This is a 67-year-old female with metastatic breast cancer with recent progression of hepatic metastasis and subsequent liver failure, who was recently hospitalized with lower extremity cellulitis, discharged on IV antibiotics, who returned with acute kidney failure, progressive liver failure, and associated encephalopathy. It is clear that patient is failing at home and likely her liver failure is driving her renal failure, although this may at least somewhat be associated with acute tubular necrosis secondary to vancomycin toxicity, although I do not have a recent trough. She has multiple electrolyte abnormalities including hyponatremia, hyperkalemia. Appropriate plan of action at this time appears to stabilize her and transition to comfort measures with hospice care. 1. Metastatic breast cancer - with progressive hepatic metastasis inducing liver failure and subsequent renal failure - patient requires hospice care. 2. Encephalopathy secondary to multiorgan failure - patient is in and out of consciousness and quiet confused when alert. 3. Liver failure secondary to hepatic metastasis. 4. Acute renal failure, likely secondary to liver failure - she appears intravascularly dry, but is grossly anasarcic. We will plan to start IV fluids to help correct electrolyte abnormalities. 5. Hyperkalemia - start IV fluids. We will treat with insulin and dextrose. 6. Atrial fibrillation - historically anticoagulated with Xarelto, which will be discontinued secondary to her renal and liver failure. No plans for anticoagulation at this time. 7. Code status. DNR. 8. Healthcare proxy is her . 9. Disposition: The patient would be admitted under inpatient status. I spoke with her at length regarding her prognosis and would like to discharge patient to hospice residence as soon as possible. Case management is currently working on placements for this patient. LUL MASSEY [id number]/[facility] #: [id number] [id number]
[2018-05-26] MEDS ORDERED: Pyridoxine TAB* 50 MG PO SCH (17:00)
[2018-05-26] MEDS ORDERED: Cyanocobalamin TAB* 500 MCG PO SCH (17:00)
[2018-05-26] MEDS ORDERED: Rivaroxaban TAB(*) 10 MG PO SCH (18:00)
[2018-05-26] MEDS: traMADol TAB* 50 MG PO PRN (21:26)
[2018-05-26] MEDS ORDERED: Morphine VIAL* 4 MG/ML VIAL (1 ml vial) IV PRN (22:25)
[2018-05-27] MEDS: NS 0.9% 1000 ML** 1,000 ML IV SCH (07:37)
[2018-05-27 08:13] VITALS: BP 89/57
[2018-05-27] MEDS: Metoprolol Succinate XL TAB* 50 MG PO SCH (08:39)
[2018-05-27] MEDS ORDERED: Potassium Chloride LIQUID* 20 MEQ PACKET PO SCH (09:00)
[2018-05-27] MEDS: Nystatin SUSPENSION* 100000 UNITS/ML 5 ML UDC PO SCH (09:09)
--- NOTE | 2018-05-27 09:40 | DS ---
CC: Dr. Kenrick Salmoon; Dr. Castellanos.* DISCHARGE SUMMARY: DATE OF ADMISSION: 05/26/18 DATE OF DISCHARGE: 05/27/18 PRIMARY CARE PROVIDER: Dr. Kenrick Salomon. PRIMARY ONCOLOGIST: Dr. Doris Castellanos. ATTENDING PHYSICIAN: Dr. Pete Comer.* (DICTATED BY LUL MASSEY) DISCHARGING PROVIDER: LUL Massey PRIMARY DISCHARGE DIAGNOSES: 1. Multiorgan failure secondary to metastatic breast cancer. 2. Metabolic encephalopathy secondary to multiorgan failure. 3. Hyperkalemia secondary to kidney failure. 4. Anasarca. 5. Atrial fibrillation. DISCHARGE MEDICATIONS: 1. Colace 100 mg p.o. daily as needed for constipation. 2. Marinol 5 mg p.o. twice daily as needed for nausea. 3. Zofran 4 mg p.o. q.6 hours as needed for nausea. 4. Hydroxyzine 25 mg p.o. 3 times daily as needed for itching. 5. Morphine oral concentrate 20 mg/mL, instructions to take 5 mg p.o. q.2 hours as needed for pain or dyspnea. 6. Compazine 10 mg p.o. q.6 hours as needed for nausea. HOSPITAL IMAGING: Chest x-ray shows low lung volumes with left basilar atelectasis versus consolidation and a small left pleural effusion. HOSPITAL COURSE: This is a 67-year-old female with metastatic breast cancer who was recently hospitalized with lower extremity cellulitis and discharged home with additional IV antibiotics. During her last admission, it was recognized that she had developed liver failure with increasing total bilirubin , INR, and decreasing albumin levels. She had had recent significant progression of liver metastases consistent with this. Recommendations at the time of her prior discharge were for sign on to home hospice. She and her were initially reluctant to sign on with hospice and were waiting for her to finish her IV antibiotics before accepting home hospice care. She was seen in the oncology office earlier this week with concerns that her cellulitis may be getting worse. At that time, it seemed more consistent with progressive edema likely secondary to her progressive liver failure that was causing worsening erythema and drainage from her legs as opposed to failure of her IV antibiotics. She was encouraged again at that time to accept home hospice care. The patient reported at that time that she was otherwise feeling relatively well. Overnight, 05/25/18 and to 05/26/18, the patient got up from bed with the urge to urinate and was extremely weak. Her had to help her to the bathroom , but nearly fell a half a dozen times and he instead attempted to get them to their car to bring her to the emergency department for evaluation. He was unsuccessful in getting her to the car and called an ambulance for assistance. When they reached the emergency department, her vitals were largely unremarkable , but she had a rather significant leukocytosis and INR of 2.7, hyperkalemia with an initial potassium of 6.1, new kidney failure with a creatinine of 3.5 and a BUN of 63 as well as climbing total bilirubin at 9.5 with associated transaminitis and an ammonia level of 60. Chest x-ray at that time demonstrated a left pleural effusion versus consolidation but the patient had no real respiratory complaints. She was intermittently confused but oriented at least to place and person on most occasions. At the time of admission, the patient received IV fluids, correction of her potassium with insulin and dextrose, and her mental status continued to wax and wane. Discussed with the patient's again that unfortunately she has now entered multiorgan failure secondary to her advancing malignancy and she would be best served with palliative comfort measures. Her has agreed with this course of action, but did not feel that he could care for her at home due to the rather significant and sudden decline in her physical abilities. DISPOSITION AND FOLLOWUP PLAN: The patient is being discharged to [facility] with hospice services in place. Most of her home medications have been discontinued. Continued p.r.n. meds for nausea and pain management, although those complaints have been few and far between during this hospitalization. Her prognosis at the time of discharge is estimated between 3 and 5 days. She has signed a MOLST in place confirming DNR and DNI. LUL MASSEY [id number]/[facility] #: [id number] [facility]
[2018-05-27] MEDS: traMADol TAB* 50 MG PO PRN (09:47)
== END 2018-05-27 11:56 ==
LOC: ED 04:28 → MEDTELE 06:17 → INTOOBSV 08:09 → OBSVTOIN 08:09 → MEDTELE 21:36
PROVIDERS: ADMIT Internal Medicine; ATTEND Internal Medicine Hematology & Oncology
DX: C50.919 Malignant neoplasm of unspecified site of unspecified female breast (principal); C79.81 Secondary malignant neoplasm of breast; C79.9 Secondary malignant neoplasm of unspecified site; C78.7 Secondary malignant neoplasm of liver and intrahepatic bile duct; R41.0 Disorientation, unspecified; R53.1 Weakness; Z88.0 Allergy status to penicillin; R41.82 Altered mental status, unspecified; E87.5 Hyperkalemia; N19 Unspecified kidney failure; R60.1 Generalized edema; I48.91 Unspecified atrial fibrillation; L03.119 Cellulitis of unspecified part of limb
CPT/HCPCS: 36415; 71045; 80053; 81003; 82140; 82150; 83605; 83690; 83735; 83880; 84484; 85025; 85610; 85730; 86140; 87040; 87077; 87150; 87186; 87205; 93005; 96361; 96365; 96372; 96375; 99220; 99239; 99284; A9270-GY; G0378; J1642; J1956; J2270